=== PATIENT | male | born 1965 | race Caucasian/White ===

== ENCOUNTER 2023-02-13 10:10 | Outpatient (REF) | payer OTHER, SELFPAY ==
[2023-02-13 10:47] LABS: Color Urine Yellow; Glucose Urine UA Negative (Negative); Leukocyte Esterase Urine Negative (Negative); Nitrite Urine Negative (Negative); PH 6.5 (5.0-9.0); Urine Blood Negative (Negative); Urine Ketones Negative (Negative); Urine Protein Trace mg/dL (Neg-Trace)
[2023-02-13 10:50] LABS: Appearance Urine Clear
[2023-02-13 11:29] LABS: Alanine Aminotransferase 40 U/L (0-40); Alkaline Phosphatase 76 U/L (39-117); Anion Gap 11 (12-20); Aspartate Amino Transferase 26 U/L (5-37); Bilirubin Total 1.2 mg/dL (0.0-1.0); Blood Urea Nitrogen 16 mg/dL (9-16); Calcium 9.1 mg/dL (8.4-10.2); Carbon Dioxide 27 mmol/L (22-29); Chloride 106 mmol/L (96-108); Cholesterol 218 mg/dL; Estimated Glomerular Filt Rate > 60; Glucose Fasting 125 mg/dL (60-99); HDL Cholesterol 65 mg/dL; LDL Cholesterol Calculated 136 mg/dl; Potassium 4.2 mmol/L (3.3-5.1); Sodium 140 mmol/L (135-145); Total Protein 6.2 g/dL (6.5-8.0); Triglycerides 85 mg/dL
[2023-02-13 11:34] LABS: Creatinine Urine 159.86 mg/dL; Microalbum/Creatinine Ratio Ur 8.7 ug/mg cr
[2023-02-13 11:51] LABS: Prostate Specific Antigen Scr 0.54 ng/mL (<0.05-4.0); TSH reflex Free T4 1.54 uIU/mL (0.32-4.0)
== END 2023-02-13 10:11 | disposition home or self-care (01) ==
LOC: HO.10HDL 10:10
PROVIDERS: Visit Provider Family Medicine
DX: Z00.00 Encounter for general adult medical examination without abnormal findings (principal); Z12.5 Encounter for screening for malignant neoplasm of prostate; I10 Essential (primary) hypertension
CPT/HCPCS: 36415; 80053; 80061; 81003; 82043; 84153; 84443

== ENCOUNTER → 2023-04-03 11:23 | Outpatient (BNVA) | payer OTHER, SELFPAY | PROVIDERS: PCP Family Medicine; Referring Provider Family Medicine; Visit Provider Surgery | DX: Z01.818 Encounter for other preprocedural examination (principal) | CPT/HCPCS: 99202 ==

== ENCOUNTER 2024-02-21 07:44 | Outpatient (REF) | payer OTHER, SELFPAY ==
[2024-02-21 08:43] LABS: Appearance Urine Clear; Color Urine Yellow; Glucose Urine UA Negative (Negative); Leukocyte Esterase Urine Negative (Negative); Nitrite Urine Negative (Negative); Urine Blood Negative (Negative); Urine Ketones Negative (Negative); Urine Protein Negative (Neg-Trace)
[2024-02-21 09:14] LABS: Creatinine Urine 121.53 mg/dL
[2024-02-21 09:16] LABS: Alanine Aminotransferase 50 U/L (0-40); Alkaline Phosphatase 70 U/L (39-117); Anion Gap 15 (12-20); Aspartate Amino Transferase 31 U/L (5-37); Blood Urea Nitrogen 16 mg/dL (9-16); Calcium 8.9 mg/dL (8.4-10.2); Carbon Dioxide 28 mmol/L (22-29); Chloride 104 mmol/L (96-108); Cholesterol 195 mg/dL (<200); Estimated Glomerular Filt Rate > 60; Glucose Fasting 114 mg/dL (60-99); HDL Cholesterol 62 mg/dL (>40); LDL Cholesterol Calculated 121 mg/dL (<100); Potassium 3.5 mmol/L (3.3-5.1); Sodium 143 mmol/L (135-145); Total Protein 6.4 g/dL (6.5-8.0); Triglycerides 60 mg/dL (<150)
[2024-02-21 09:25] LABS: Prostate Specific Antigen Scr 0.51 ng/mL (<0.05-4.0)
== END 2024-02-21 07:45 | disposition home or self-care (01) ==
LOC: HO.LAB 07:44
PROVIDERS: PCP Family Medicine; Visit Provider Family Medicine
DX: Z00.00 Encounter for general adult medical examination without abnormal findings (principal); I10 Essential (primary) hypertension; Z12.5 Encounter for screening for malignant neoplasm of prostate
CPT/HCPCS: 36415; 80053; 80061; 81003; 82043; 82570; 84153

== ENCOUNTER 2024-03-02 10:55 | Outpatient (AMB) | payer OTHER, SELFPAY ==
[2024-03-02 11:10] VITALS: BP 130/82; PULSE 86; O2SAT 96; BMI 31.1
--- NOTE | 2024-03-02 11:10 | A.OFFPC_ITS ---
Vital Signs 03/02/24 11:10 Height 5 ft 11 in Weight 223 lb BMI 31.1 BP 130/82 Blood Pressure Location Lt brachial Position Sitting Pulse 86 Pulse Source Pulse Oximeter Pulse Oximetry (%) 96 Oxygen Delivery Method Room Air Intake Visit Reasons: CPE with f/u labs and health maint. Intake Note: Patient is here for physical with follow up on labs and health maintenance. Allergies No Known Allergies Allergy (Verified 03/02/24 11:11) Tobacco use date assessed: 03/02/24 Dental Screening Dental Screen Date: 03/02/24 Did you have a dental visit in the last 12 months?: Yes Did you have a dental problem in the last 6 months where you did not have access to dental care?: No Was dental information given to patient?: Patient has dentist HPI CPE with f/u labs and health maint. HPI Details 59 y/o male presents for an extended exa m with f/u labs and health m aintenance. Labs were drawn 02/21/24. Reviewed labs with pt. Elevated fasting glucose of 114. Elevated ALT of 50. AST 31. Triglycerides 60. TC 195. LDL 121. HDL 62. Last A1c 03/01/23 5.2%. Blood pressure today 130/82. PFSH Social History Housing: House Patient Tobacco Use Status: Never used Tobacco e-Cigarette/Vaping Use: Never Used service: No Current occupational status: unemployed Current occupational exposures/hazards: No Cognitive needs: No Hearing needs: No Vision needs: No Questionnaire Thrive Questionnaire Date Thrive assessed: 12/20/22 SUYAPA-7 AMB Questionnaire SUYAPA-7 Date SUYAPA - 7 assessed: 12/20/22 Source: Developed by Drs. Nikos Mukherjee, Cyndie King, Jeremy Pederson and colleagues, with an educational carolyn from [employer]. Review of Systems Const Denies chills, Denies fatigue, Denies fever(s), Denies headache(s) and Denies weakness Eyes Denies change in vision ENT Denies dizziness, Denies headache(s), Denies hearing loss, Denies nasal congestion, Denies sinus pain, Denies sinus pressure and Denies sore throat Card Denies chest pain, Denies lightheadedness, Denies dyspnea and Denies other (palpitations) Resp Denies cough, Denies dyspnea and Denies wheezing GI Denies abdominal pain, Denies melena, Denies hematochezia, Denies change in bowel habits, Denies dyspepsia and Denies nausea Denies hematuria and Denies dysuria Musc Denies abnormal gait, Denies myalgias, Denies arthralgias, Denies numbness and Denies tingling Skin/Breast Denies rash, Denies unusual bruising and Denies wounds Neuro Denies abnormal gait, Denies dizziness, Denies headache(s), Denies memory loss, Denies numbness, Denies Sensory deficit (Neuro), Denies tingling and Denies weakness Psych Denies anxiety, Denies depression and Denies memory loss Endo Denies cold intolerance, Denies fatigue, Denies heat intolerance, Denies polydipsia and Denies polyuria Clint/Lymph Denies easy bleeding and Denies easy bruising Aller/Immun Denies wheezing Physical exam (Primary Care) Vital Signs: Last Vital Signs Pulse 86 03/02/24 11:10 BP 130/82 03/02/24 11:10 Pulse Ox 96 03/02/24 11:10 Oxygen Delivery Method Room Air 03/02/24 11:10 BMI result Body Mass Index 31.1 Tobacco/Smoking Status: Tobacco use Status Tobacco use date assessed 03/02/24 03/02/24 11:16 Patient Tobacco Use Status Never used Tobacco 03/02/24 11:10 e-Cigarette/Vaping Use Never Used 03/02/24 11:10 Thrive Assessment: Date of Thrive Assessment Date Thrive assessed 12/20/22 03/02/24 11:10 Const General: no acute distress, well developed, alert and awake Nutritional Appearance: well nourished Orientation/consciousness: patient oriented x3 HENMT Head: Yes normocephalic and Yes atraumatic Ears: hearing grossly normal bilaterally and TM's normal bilaterally General nose exam: Normal external nose present and Normal nares present Mouth: Normal oral and palatal mucosa present and moist mucous membranes Teeth and gingiva: dentition normal Throat: Yes posterior oropharynx normal Eyes General: appearance normal, both eyes and all related structures Pupils: Equal, round and reactive pupils present and Pupil accommodation reflex normal EOM: EOMs intact bilaterally Neck Neck: Yes normal visual inspection, Yes no lymphadenopathy and Yes trachea midline Thyroid: Thyroid normal Carotids: no bruits Lymphatic: no lymphadenopathy noted Chest Chest palpation & inspection: normal inspection of the chest Resp Effort & Inspection: normal respiratory effort Auscultation: clear to auscultation bilaterally Cardio Rate: regular rate Rhythm: regular rhythm Heart sounds: S1 normal heart sound present, S2 normal heart sound present, no gallops, no murmurs and no rubs Bruits: no abdominal aortic bruits and no carotid bruits GI Palpation (GI): No Abdominal aortic bruit present, Soft to palpation, nontender, No hepatosplenomegaly present and No Rebound tenderness present Auscultation: normal bowel sounds General: Yes no CVA tenderness Back/Spine/Pelvis Back: no CVA tenderness Cervical Spine: cervical ROM normal and No Cervical spine tenderness Thoracic/Lumbar Spine: thoraco-lumbar ROM normal, No pain with thoraco-lumbar ROM, No thoracic spinal tenderness and No lumbar spinal tenderness Skin Lesions: no lesions Rashes: no rashes Trauma: no lacerations or abrasions Wounds: no wounds Nails: normal Neuro General: patient oriented x3 Cranial nerves: Yes Equal, round and reactive pupils present Cognition (Neuro): normal cognition Gait exam (Neuro): Normal gait present Motor exam (neuro): 5/5 motor strength present throughout Sensory Exam: No Sensory deficit (Neuro) Deep tendon reflexes (DTR's): Right patellar reflex intensity grade: 2+ and Left patellar reflex intensity grade: 2+ Extrem General: Yes normal to inspection and No edema Psych Appearance: grossly normal Affect: normal affect Attitude: cooperative Thought process: Normal thought process present Assessment and Plan Assessment & Plan (1) Hypercholesterolemia: Code(s): E78.00 - Pure hypercholesterolemia, unspecified Plan: LDL?cholesterol?is?improved. HDL?ratios?are?good Encouraged?improved?diet,?low?in?saturated?fats?and?cholesterol Encouraged?more?exercise (2) Elevated fasting glucose: Code(s): R73.01 - Impaired fasting glucose Plan: Encouraged?diet?lower?in?sugars?and?starches Encouraged?weight?loss?and?exercise (3) Elevated liver enzymes: Code(s): R74.8 - Abnormal levels of other serum enzymes Plan: Encouraged?weight?loss Had?liver?ultrasound?for?5?years?ago. Repeating?the Will?follow-up?on?ultrasound?and?repeat?liver?enzymes?at?next?visit (4) [place]: Code(s): L84 - Corns and callosities Plan: [place]?on?bottom?of?right?foot Offered?to?refer?to?Podiatry?but?patient?wants?to?try?at?home?cryo?remedy He?can?let?me?know?if?he?would?like?a?refer (5) Screening for colon cancer: Code(s): Z12.11 - Encounter for screening for malignant neoplasm of colon Plan: Had?referred?him?to??Dmitri?but?his?insurance?changed He?would?like?a?referral?to??Bro-refer (6) Screening for prostate cancer: Code(s): Z12.5 - Encounter for screening for malignant neoplasm of prostate Plan: PSA?was?within?normal?limits Will?continue?annual?screen (7) Adult general medical exam: Code(s): Z00.00 - Encounter for general adult medical examination without abnormal findings Plan: 59-year-old?male?presents?for?extended?exam Encouraged?healthy?diet?with?active?lifestyle?and?plenty?of?exercise Orders: Orders US abdomen gerard w elastography Today R74.8 - Abnormal levels of other serum enzymes Comprehensive [place]. Panel Fast Today R74.8 - Abnormal levels of other serum enzymes, Z00.00 - Encounter for general adult medical examination without abnormal findings Referrals Gastroenterology Referral Z12.11 - Encounter for screening for malignant neoplasm of colon Coding Level of Care Code Est Pt Level 4 (78295) Diagnoses Hypercholesterolemia E78.00 Elevated fasting glucose R73.01 Elevated liver enzymes R74.8 [place] L84 Screening for colon cancer Z12.11 Screening for prostate cancer Z12.5 Adult general medical exam Z00.00
== END 2024-03-02 11:43 | disposition home or self-care (01) ==
PROVIDERS: Visit Provider Family Medicine
DX: E78.00 Pure hypercholesterolemia, unspecified (principal); R73.01 Impaired fasting glucose; R74.8 Abnormal levels of other serum enzymes; L84 Corns and callosities; Z12.11 Encounter for screening for malignant neoplasm of colon; Z12.5 Encounter for screening for malignant neoplasm of prostate; Z00.00 Encounter for general adult medical examination without abnormal findings
CPT/HCPCS: 99214

== ENCOUNTER 2024-04-08 07:49 | Outpatient (REF) | payer OTHER, SELFPAY ==
--- NOTE | ~2024-04-08 | US_ITS ---
EXAMINATION: US ABDOMEN LIMITED WITH LIVER ELASTOGRAPHY CLINICAL INFORMATION: Abnormal levels of other serum enzymes. COMPARISON: Abdominal ultrasound dated 09/17/2018. TECHNIQUE: Real-time imaging of the abdominal viscera. Noninvasive ultrasound liver fibrosis assessment is performed using Regina ElastPQ point quantification shear wave elastography (2D-SWE) with a C5-2 MHz transducer. Multiple elastography samples are obtained. FINDINGS: PANCREAS: Limited. The visualized pancreatic head and body are normal in appearance. The remainder of the pancreas is obscured from visualization by the overlying bowel gas. LIVER: Normal. The liver demonstrates normal size, contour and echogenicity. No focal lesion or intrahepatic biliary duct dilatation. The right lobe measures 15.9 cm in length. The left lobe measures 10.7 cm in length. Portal flow is towards the liver (hepatopetal). Shear wave liver elastography median stiffness is 1.42 m/s (reference: normal median stiffness is 1.3 m/s or less). IQR/median stiffness to assess sampling precision is 0.06 (reference: good quality data set is IQR/median stiffness of 0.15 or less). GALLBLADDER: Normal. The gallbladder is physiologically distended without evidence of stones, sludge, polyps, wall thickening or pericholecystic fluid. COMMON BILE DUCT: Normal in caliber measuring 0.3 cm in diameter. RIGHT KIDNEY: At the lower pole, a 4 mm nonobstructing calculus is seen, with twinkle artifact. No hydronephrosis. No renal calculi or focal parenchymal lesions. The kidney measures 11.6 cm in maximum dimension. FREE FLUID: None. US/US abdomen gerard w elastography IMPRESSION: 1. A 4 mm nonobstructing right renal calculus is seen. 2. Liver elastography: In the absence of other known clinical signs, measurements rule out compensated advanced chronic liver disease. If there are known clinical signs, further testing may be needed for confirmation. 3. Technically limited ultrasound examination of the pancreatic tail. REFERENCE: Society of Radiologists in Ultrasound Liver Stiffness Thresholds (2020): LIVER STIFFNESS THRESHOLDS: *Liver Stiffness equal or less than 1.3 m/s: High probability of being normal. *Liver Stiffness less than 1.7 m/s: In the absence of other known clinical signs, rules out compensated advanced chronic liver disease. *Liver Stiffness 1.7-2.1 m/s: Suggestive of compensated advanced chronic liver disease but need further test for confirmation. *Liver Stiffness over 2.1 m/s: Rules in compensated advanced chronic liver disease. *Liver Stiffness over 2.4 m/s: Suggestive of clinically significant portal hypertension. QUALITY OF DATA SET: *IQR/Median value equal or less than 0.15 implies a quality data set. *IQR/Median value over 0.15 implies a poor quality data set. SIGNIFICANT CHANGE FROM PRIOR EXAM: Significant change if liver stiffness measurement is 10% or greater from prior exam. OTHER CONSIDERATIONS: The stage of liver fibrosis may be overestimated in the setting of acute hepatitis, liver inflammation, elevated liver function tests, hepatic vascular congestion, obstructive cholestasis, non-fasting state, and infiltrative diseases such as amyloidosis and lymphoma. In some patients with NAFLD, the liver stiffness thresholds for compensated advanced chronic liver disease may be lower. In causes other than viral hepatitis and NAFLD, liver stiffness thresholds are not well established.
== END 2024-04-08 07:50 | disposition home or self-care (01) ==
LOC: HO.US 07:49
PROVIDERS: PCP Family Medicine; Visit Provider Family Medicine
DX: R74.8 Abnormal levels of other serum enzymes (principal)
CPT/HCPCS: 76705; 76981

== ENCOUNTER 2024-05-25 09:17 | Outpatient (REF) | payer OTHER, SELFPAY ==
[2024-05-25 11:40] LABS: Alanine Aminotransferase 46 U/L (0-40); Albumin Level 4.1 g/dL (3.5-5.0); Alkaline Phosphatase 67 U/L (39-117); Anion Gap 12 (12-20); Aspartate Amino Transferase 31 U/L (5-37); Bilirubin Total 1.2 mg/dL (0.0-1.0); Blood Urea Nitrogen 14 mg/dL (9-16); Calcium 9.3 mg/dL (8.4-10.2); Carbon Dioxide 26 mmol/L (22-29); Chloride 106 mmol/L (96-108); Estimated Glomerular Filt Rate > 60; Glucose Fasting 118 mg/dL (60-99); Potassium 3.5 mmol/L (3.3-5.1); Sodium 140 mmol/L (135-145); Total Protein 6.5 g/dL (6.5-8.0)
== END 2024-05-25 09:18 | disposition home or self-care (01) ==
LOC: HO.10HDL 09:17
PROVIDERS: Visit Provider Family Medicine
DX: Z00.00 Encounter for general adult medical examination without abnormal findings (principal); R74.8 Abnormal levels of other serum enzymes
CPT/HCPCS: 36415; 80053

== ENCOUNTER 2024-06-02 10:56 | Outpatient (AMB) | payer OTHER, SELFPAY ==
--- NOTE | 2024-06-02 11:47 | MHC.PC.OV ---
Vital Signs 06/02/24 11:48 Height 5 ft 11 in Weight 214 lb 6 oz BMI 29.9 BP 126/80 Blood Pressure Location Rt brachial Position Sitting Respiration 15 Pulse 78 Pulse Source Pulse Oximeter Temp 98 F Temp Source Temporal Artery Scan Pulse Oximetry (%) 97 Oxygen Delivery Method Room Air Intake Visit Reasons: f/u elevated liver enzymes Skip Locator Required: No Accompanied by: Self / Same As Patient Allergies No Known Allergies Allergy (Verified 06/02/24 11:51) Tobacco use date assessed: 03/02/24 Dental Screening Dental Screen Date: 03/02/24 HPI f/u elevated liver enzymes HPI Details 59 y/o male presents to f/u elevated liver enzymes. Labs were drawn 05/25/24. Reviewed labs with pt. Elevated AST of 46. Liver elastography 04/08/24. 4mm nonobstructing R renal calculus was seen. Liver stiffness 1.42 m/s. [facility] Medical History No pertinent past medical history Surgical History No pertinent past surgical history Social History Housing: House Patient Tobacco Use Status: Never used Tobacco e-Cigarette/Vaping Use: Never Used service: No Current occupational status: unemployed Current occupational exposures/hazards: No Cognitive needs: No Hearing needs: No Vision needs: No Questionnaire Thrive Questionnaire Date Thrive assessed: 12/20/22 SUYAPA-7 AMB Questionnaire SUYAPA-7 Date SUYAPA - 7 assessed: 12/20/22 Source: Developed by Drs. Nikos Mukherjee, Cnydie King, Jeremy Pederson and colleagues, with an educational carolyn from [employer]. Physical exam (Primary Care) Vital Signs: Last Vital Signs Temp 98 F 06/02/24 11:48 Pulse 78 06/02/24 11:48 Resp 15 06/02/24 11:48 BP 126/80 06/02/24 11:48 Pulse Ox 97 06/02/24 11:48 Oxygen Delivery Method Room Air 06/02/24 11:48 BMI result Body Mass Index 29.9 Tobacco/Smoking Status: Tobacco use Status Tobacco use date assessed 03/02/24 06/02/24 11:53 Patient Tobacco Use Status Never used Tobacco 06/02/24 11:53 e-Cigarette/Vaping Use Never Used 06/02/24 11:53 Thrive Assessment: Date of Thrive Assessment Date Thrive assessed 12/20/22 06/02/24 11:53 Assessment and Plan Assessment & Plan (1) Elevated liver enzymes: Code(s): R74.8 - Abnormal levels of other serum enzymes Plan: Mild?elevation?in?liver?enzymes.??Most?recently?ALT?has?decreased?slightly Imaging?did?not?show?any?masses?or?lesions.??Elastography?ruled?out?any compensated?advanced?chronic?liver?disease He?has?lost?some?weight?and?I?encouraged?him?to?continue?this. Encouraged?good?hydration (2) Kidney stone: Code(s): N20.0 - Calculus of kidney Plan: Incidental?right?kidney?stone?was?seen Increase?hydration Orders: Orders Comprehensive [place]. Panel Fast Today R74.8 - Abnormal levels of other serum enzymes, Z00.00 - Encounter for general adult medical examination without abnormal findings Hemoglobin A1c Today R73.01 - Impaired fasting glucose UA and rflx microscopic Today N20.0 - Calculus of kidney, Z00.00 - Encounter for general adult medical examination without abnormal findings Coding Level of Care Code Est Pt Level 3 (13529) Diagnoses Elevated liver enzymes R74.8 Kidney stone N20.0
[2024-06-02 11:48] VITALS: BP 126/80; PULSE 78; RESP 15; TEMP 36.6; O2SAT 97; BMI 29.9
== END 2024-06-02 12:22 | disposition home or self-care (01) ==
PROVIDERS: PCP Family Medicine; Visit Provider Family Medicine
DX: R74.8 Abnormal levels of other serum enzymes (principal); N20.0 Calculus of kidney
CPT/HCPCS: 99213

== ENCOUNTER 2024-10-05 13:10 | Day surgery (SDC) | payer OTHER, SELFPAY ==
[2024-10-01 14:13] VITALS: BMI 30.7
--- NOTE | 2024-10-02 08:52 | HO.ANESPROP2 ---
Documented by User: Ina Hadley NP 10/02/24 08:55 HPI - Anesthesia Eval Consult details Narrative: 59yo M for Colonoscopy PMFSH Active Problems Active Problems: All Active Problems Kidney stone (Acute) [place] (Acute) Elevated liver enzymes (Acute) Screening for prostate cancer (Acute) Screening for colon cancer (Acute) Adult general medical exam (Acute) Hypercholesterolemia (Acute) Elevated fasting glucose (Acute) Plantar fasciitis, left (Acute) Laboratory examination ordered as part of a routine general medical examination (Acute) Past Medical History Medical History Renal calculi Surgical History Surgical History Hx of excision of mass History of repair of anterior cruciate ligament of right knee Hx of shoulder surgery Social History Social History (Reviewed 06/02/24 @ 11:53 by Francoise Ackerman [facility]) Housing: House Patient Tobacco Use Status: Never used Tobacco e-Cigarette/Vaping Use: Never Used Have you been hit, kicked, punched, or otherwise hurt by someone within the past year? If so, by whom?: No Are you DNR?: No Advance Directives: No Advance Directives Information Provided: Yes Recently lost weight without trying: No Nutrition Risks: No Nutritional Risk Poor oral hygiene: No service: No Current occupational status: unemployed Current occupational exposures/hazards: No Cognitive needs: No Hearing needs: No Vision needs: No Meds Allergies Allergy/AdvReac Type Severity Reaction Status Date / Time No Known Allergies Allergy Verified 06/02/24 11:51 Exam Height,Weight and Vital Signs: Height 5 ft 10 in Weight 97.069 kg Assessment and Plan Assessment Anesthesia Assessment: Chart Reviewed Documented by User: Kelechi Abdul MD 10/05/24 14:53 PMFSH Past Medical History Medical History Renal calculi Family History Family history of problems with anesthesia: No Surgical History Surgical History Hx of excision of mass History of repair of anterior cruciate ligament of right knee Hx of shoulder surgery History of Problems with Anesthesia: No Social History Social History Housing: House Patient Tobacco Use Status: Never used Tobacco e-Cigarette/Vaping Use: Never Used Have you been hit, kicked, punched, or otherwise hurt by someone within the past year? If so, by whom?: No Are you DNR?: No Advance Directives: No Advance Directives Information Provided: Yes Recently lost weight without trying: No Nutrition Risks: No Nutritional Risk Poor oral hygiene: No service: No Current occupational status: unemployed Current occupational exposures/hazards: No Cognitive needs: No Hearing needs: No Vision needs: No Meds Allergies Allergy/AdvReac Type Severity Reaction Status Date / Time No Known Allergies Allergy Verified 06/02/24 11:51 Exam Airway Mallampati Class: II TM Dist: <=3cm Neck ROM: Full Loose/Missing/Broken Teeth: No Heart: ok Lungs: ok Assessment and Plan Assessment Anesthesia Assessment: Anesthesia Plan Discussed Final Anesthetic Review Family History of Problems with Anesthesia: No History of Problems with Anesthesia: No NPO: Yes ASA Class: II Final Preanesthetic Review: No Changes in Pt Med Stat, Meds/Allgs Chart Reviewed, Consent Obtained/Reviewed and Anes Risks/Benef Reviewed Patient Risk: Low Procedure Risk: Low Anesthetic Plan Anesthetic Plan: MAC: and Agree w/ Assess. and Plan Disposition: Standard PACU
[2024-10-05 13:56] VITALS: BP 139/87; PULSE 80; RESP 18; TEMP 36.4; O2SAT 96
[2024-10-05 15:35] VITALS: BP 101/60; PULSE 66; RESP 18; TEMP 36.1; O2SAT 94
--- NOTE | 2024-10-05 15:38 | PM.OP ---
Brief Operative Note Date of Service: 10/05/24 Pre-op diagnosis: Screening Post-op diagnosis: other (Colon polyp) Procedure: Colonoscopy to the cecum and TI with cold snare polypectomy Surgeon: Nikos Crabtree MD Anesthesia: MAC Was an Aerosol Supervisor used for this Procedure?: No Estimated blood loss (mL): 2.0 Pathology: other (A. Transverse colon polyp) Condition: stable Disposition: PACU
[2024-10-05 15:50] VITALS: BP 121/82; PULSE 77; RESP 20; TEMP 36.4; O2SAT 97
--- NOTE | 2024-10-05 15:52 | OP_ITS ---
DATE OF SERVICE: 10/05/2024 SURGEON: Nikos Crabtree MD INDICATIONS: The patient presents for evaluation of colorectal cancer screening. Full consent has been obtained from him for this, including risks of bleeding and perforation. PREOPERATIVE DIAGNOSIS: Colorectal cancer screening. POSTOPERATIVE DIAGNOSIS: PROCEDURE PERFORMED: Colonoscopy to cecum and terminal ileum with cold snare polypectomy x1. ESTIMATED BLOOD LOSS: COMPLICATIONS: ANESTHESIA: Monitored anesthesia care. ASSISTANTS: SPECIMENS: POSTOPERATIVE DIAGNOSES: Colorectal cancer screening, small colon polyp, mild sigmoid diverticulosis, and small internal hemorrhoids. DESCRIPTION OF PROCEDURE: The patient was placed in the left lateral decubitus position. The digital rectal exam revealed no abnormalities. The Olympus video pediatric colonoscope was then entered into the rectum and advanced easily to the cecum. Once in the cecum, I did identify normal-appearing cecal pouch with appendiceal orifice and a normal-appearing ileocecal valve. The terminal ileum was cannulated and appeared normal. Scope was withdrawn back in the colon. The entire cecum and ileocecal valve appeared normal. The scope was slowly withdrawn assessing all mucosal surfaces carefully. Preparation was excellent. In the transverse colon, was a flat, approximately 5 or 6 mm polyp, which was removed by cold snare polypectomy and recovered by suction. The polypectomy site appeared clean, without any sign of residual polyp nor significant bleeding. I did not visualize any other polyps, colitis, nor angiodysplasias. There was a mild amount of sigmoid diverticulosis. In the rectum, scope was retroflexed, visualizing small internal hemorrhoids, but no other pathology. The rectal mucosa appeared normal. The scope was straightened and withdrawn from the patient. He tolerated the procedure well and was returned to the recovery area in stable condition. IMPRESSION: 1. Small colon polyp. 2. Mild diverticulosis. 3. Small internal hemorrhoids. PLAN: The results of the pathology will be checked. If the polyp is a tubular adenoma, I would recommend a followup colonoscopy in 5 years. If it is only hyperplastic, then I would recommend a followup colonoscopy in 10 years. He was advised not to use any aspirin and NSAIDs for 1 week. MD NAT Cooper/JACQUELYN / [phone]
== END 2024-10-05 16:03 | disposition home or self-care (01) ==
PROVIDERS: PCP Family Medicine; Visit Provider Internal Medicine
PROC: 0DJD8ZZ Inspection of Lower Intestinal Tract, Via Natural or Artificial Opening Endoscopic (ICD-10-PCS; CPT 45378; principal; 2024-10-05 13:30)
DX: Z12.11 Encounter for screening for malignant neoplasm of colon (principal); Z83.719 Family history of colon polyps, unspecified; D12.3 Benign neoplasm of transverse colon; K57.30 Diverticulosis of large intestine without perforation or abscess without bleeding; K64.8 Other hemorrhoids; Z87.442 Personal history of urinary calculi; Z98.890 Other specified postprocedural states
CPT/HCPCS: 45385; 88305; J2003; J2704

== ENCOUNTER 2024-11-03 13:46 | Outpatient (AMB) | payer OTHER, SELFPAY ==
--- OUTSIDE RECORDS SUMMARY | 2024-11-03 13:48 | XMS_ITS ---
Author Organization [facility] Address [address] [place] [address] Care Team Providers Care Hand Molder Name Role Phone Harvey Louis Primary Care Provider Unavailab Nikos Luong Unavailable [phone] REASON FOR VISIT screening PROBLEMS Problem Type ICD Code Onset Dates Problem Status W/U Status Risk SNOMED Code Notes Problem Diverticulosis of large intestine without perforation or abscess without bleeding (K57.30) Active confirmed Diverticul ar disease of colon (833306236) Encounters Encounter Location Date Provider Diagnosis [facility] [place] [address] [place] [phone] 10/05/2024 Nikos Crabtree Colon cancer scree sean Z12.11 ; Colon polyps K63.5 ; Diverticulosis of large intestine without perforation or abscess without bleeding K57.30 and Other hemorrhoids K64.8 ASSESSMENTS Encounter Date Diagnosis Assessment Notes Treatment Notes Treatment Clinical Notes 10/05/2024 Colon cancer screening (ICD-10 - Z12.11) 10/05/2024 Colon polyps (ICD-10 - K63.5) 10/05/2024 Diverticulosis of large intestine without perforation or abscess without bleeding (ICD-10 - K57.30) 10/05/2024 Other hemorrhoids (ICD-10 - K64.8) PLAN OF TREATMENT No Information
--- OUTSIDE RECORDS SUMMARY | 2024-11-03 13:49 | XMS_ITS ---
Author Organization [facility] Address [address] [place] [address] Care Team Providers Care Caustic Strength Inspector Name Role Phone Harvey Louis Primary Care Provider Unavailab Nikos Luong Unavailable [phone] ALLERGIES No Known Allergies REASON FOR VISIT Patient presents today for a colon screening PROBLEMS Problem Type ICD Code Onset Dates Problem Status W/U Status Risk SNOMED Code Notes Problem Colon cancer screening (Z12.11) Active confirmed Colon cancer screening (353071065) Problem Encounter for other preprocedural examination (Z01.818) Active confirmed Pre-procedure evaluation check (963286081) VITAL SIGNS BMI 30.70 kg/m2 07/21/2024 Blood pressure systolic 00 mm Hg 07/21/20 24 Blood pressure diastolic 00 mm Hg 024 Height 70 in 07/21/2024 Weight 214 lbs 07/21/2024 Encounters Encounter Location Date Provider Diagnosis [facility] [address] [place] [phone] 07/21/2024 Nikos Crabtree Colon cancer screeni ng Z12.11 and Encounter for other preprocedural examination Z01.818 ASSESSMENTS Encounter Date Diagnosis Assessment Notes Treatment Notes Treatment Clinical Notes 07/21/2024 Colon cancer screening (ICD-10 - Z12.11) 07/21/2024 Encounter for other preprocedural examination (ICD-10 - Z01.818) PLAN OF TREATMENT Future Test Test Name Order Date COLONOSCOPY 07/21/2024 Next Appt Details Follow Up: prn, Reason: Progress Notes * Examination Category Sub-Category Detail Notes General Examination GENERAL APPEARANCE: pleasant , well nourished, well developed, in no acute distress HEAD: EYES: sclera non-icteric EARS: NOSE: THROAT: NECK/THYROID: no cervical lymphade nopathy, neck supple HEART: S1, S2 normal CHEST: LUNGS: clear to auscultatio n bilaterally ABDOMEN: normal bowel sounds, no guarding or rigidity, no guarding or rigidity, no masses palpable, soft, nontender, nondistended NEUROLOGIC: alert and oriented SKIN: nonjaundiced, no spi josé angiomata EXTREMITIES: no edema PERIPHERAL PULSES: BACK: BREASTS: MUSCULOSKELETAL: MALE GENITOURINARY: LYMPH NODES: RECTAL EXAM: FEMALE GENITOURINARY: ORAL CAVITY: mucosa moist
--- OUTSIDE RECORDS SUMMARY | 2024-11-03 13:49 | XMS_ITS | Patient Health Record ---
Author Organization [facility] Address [address] [place] [address] Care Team Providers Care Epic Kaleidoscope Analyst Name Role Phone Heriberto, Harvey Primary Care Provider Unavailab Nikos Luong Unavailable [phone] ALLERGIES No Known Allergies RESULTS Component Value Reference Range Notes Pathology (Not yet reviewed by provider) Interpretation: Performing Lab:[facility], [address] [place] [phone] Notes/Report: REASON FOR REFERRAL No Information SOCIAL HISTORY Sex Assigned At : Social History Observation Description Sex Assigned At Unknown PROBLEMS Problem Type ICD Code Onset Dates Problem Status W/U Status Risk SNOMED Code Notes Problem Colon cancer screening (Z12.11) Active confirmed Colon can cer screening (347962479) Problem Encounter for other preprocedural examination (Z01.818) Active confirmed Pre-procedure evaluation check (267152335) Problem Diverticulosis of large intestine without perforation or abscess without bleeding (K57.30) Active confirmed Diverticul ar disease of colon (959438117) VITAL SIGNS Blood pressure diastolic 00 mm Hg 07/21/2024 Height 70 in 07/21/2024 Blood pressure systolic 00 mm Hg 07/21/2024 Weight 214 lbs 07/21/2024 BMI 30.70 kg/m2 07/21/2024 Encounters Encounter Location Date Provider Diagnosis [facility] [place] [address] [place] [id number] 10/05/2024 Nikos Crabtree Colon cancer screeni ng Z12.11 ; Colon polyps K63.5 ; Diverticulosis of large intestine without perforation or abscess without bleeding K57.30 and Other hemorrhoids K64.8 [facility] [address] [place] [phone] 07/21/2024 Nikos Crabtree Colon cancer screeni ng Z12.11 and Encounter for other preprocedural examination Z01.818 ASSESSMENTS Encounter Date Diagnosis Assessment Notes Treatment Notes Treatment Clinical Notes 10/05/2024 Colon cancer screening (ICD-10 - Z12.11) 10/05/2024 Colon polyps (ICD-10 - K63.5) 07/21/2024 Colon cancer screening (ICD-10 - Z12.11) 07/21/2024 Encounter for other preprocedural examination (ICD-10 - Z01.818) 10/05/2024 Diverticulosis of large intestine without perforation or abscess without bleeding (ICD-10 - K57.30) 10/05/2024 Other hemorrhoids (ICD-10 - K64.8) PLAN OF TREATMENT Pending Test Test Name Order Date Pathology 10/05/2024 Future Test Test Name Order Date COLONOSCOPY 08/19/2014 COLONOSCOPY 07/21/2024 Insurance Providers Payer Name Payer Address Payer Phone Subscriber Number Group Number Insured Name Patient Relationship to Insured Coverage Start Date Coverage End Date [facility] [address] [address] [place], [place] [id number] NITISH JOHNSON Self - patient is the insured MEDICAL (GENERAL) HISTORY Medical History History ICD Code Denies AK,DM,CVA,Lung disease,renal dise ase Kidney stone Surgical History Surgery Date(Month/Year) Shoulder surgery-right Right knee surgery-ACL Ganglion on the left
--- NOTE | 2024-11-03 13:51 | A.OFFPC_ITS ---
Vital Signs 11/03/24 13:54 Height 5 ft 11 in Weight 224 lb 2 oz BMI 31.3 BP 142/88 H Blood Pressure Location Rt brachial Position Sitting Respiration 16 Pulse 78 Pulse Source Pulse Oximeter Temp 98.4 F Temp Source Temporal Artery Scan Pulse Oximetry (%) 97 Oxygen Delivery Method Room Air Intake Visit Reasons: pressure on right side of head/stiff neck Intake Note: patient here c/o he was bleeding thru his right nostril and pressure on right side of head and stiff neck since sep 23 Director Loss Prevention Required: No Allergies No Known Allergies Allergy (Verified 11/03/24 14:11) Medication List - Last Reconciled 11/03/24 by Lisa Trejo CNP No Known Home Meds Tobacco use date assessed: 11/03/24 Dental Screening Dental Screen Date: 11/03/24 Did you have a dental visit in the last 12 months?: Yes Did you have a dental problem in the last 6 months where you did not have access to dental care?: No Was dental information given to patient?: Patient has dentist HPI HPI Comments History of Present Illness Details The patient is a 59-year-old male presenting with a history of epist axis and right-sided facial pressure. On September 23, the patient experienced a significant episode of epistaxis, with bright red blood gushing from the right nostril. He noted the presence of approximately 5 inches by 5 inches of blood staining on his bed sheet, which he described as unusual since he typically does not experience nosebleeds. Following this event, he developed a persistent sensation of pressure on the right side of his head and right ear, which commenced shortly after the nosebleed and has persisted for about a month without any exacerbation. The pressure is constant, not associated with any throbbing, and has been relieved intermittently upon taking ibuprofen. The patient is uncertain of the cause of these symptoms and has not experienced them previously. Previous medical history does not include frequent nosebleeds, and there are no notable neurological symptoms. The patient denies any associated trauma, visual disturbances, tingling, or numbness. [facility] Medical History (Updated 11/03/24 @ 14:37 by Lisa Trejo CNP) Renal calculi Surgical History Hx of excision of mass History of repair of anterior cruciate ligament of right knee Hx of shoulder surgery Social History Housing: House Patient Tobacco Use Status: Never used Tobacco e-Cigarette/Vaping Use: Never Used service: No Current occupational status: unemployed Current occupational exposures/hazards: No Cognitive needs: No Hearing needs: No Vision needs: No Questionnaire Thrive Questionnaire Date Thrive assessed: 12/20/22 SUYAPA-7 AMB Questionnaire SUYAPA-7 Date SUYAPA - 7 assessed: 12/20/22 Source: Developed by Drs. Nikos Mukherjee, Cyndie King, Jeremy Pederson and colleagues, with an educational carolyn from [employer]. Review of Systems Const Details: Const Denies chills, Denies fatigue, Denies fever(s), Denies headache(s) and Denies weakness ENT Reports as per HPI Card Denies chest pain, Denies lightheadedness, Denies dyspnea and Denies other (Palpitations) Resp Denies cough, Denies dyspnea, Denies wheezing and Denies other ( shortness of br eath) GI Denies abdominal pain, Denies melena, Denies hematochezia, Denies change in bowel habits, Denies dyspepsia and Denies nausea Denies hematuria and Denies dysuria Musc Denies abnormal gait, Denies myalgias, Denies arthralgias, Denies numbness and Denies tingling Skin/Breast Denies rash, Denies unusual bruising and Denies wounds Neuro Denies abnormal gait, Denies dizziness, Denies headache(s), Denies memory loss, Denies numbness, Denies Sensory deficit (Neuro), Denies tingling and Denies weakness Psych Denies anxiety, Denies depression, Denies memory loss Endo Denies cold intolerance, Denies fatigue, Denies heat intolerance, Denies polydipsia and Denies polyuria Aller/Immun Denies wheezing Physical exam (Primary Care) Vital Signs: Last Vital Signs Temp 98.4 F 11/03/24 13:54 Pulse 78 11/03/24 13:54 Resp 16 11/03/24 13:54 BP 142/88 H 11/03/24 13:54 Pulse Ox 97 11/03/24 13:54 Oxygen Delivery Method Room Air 11/03/24 13:54 BMI result Body Mass Index 31.3 Tobacco/Smoking Status: Tobacco use Status Tobacco use date assessed 11/03/24 11/03/24 13:57 Patient Tobacco Use Status Never used Tobacco 11/03/24 13:52 e-Cigarette/Vaping Use Never Used 11/03/24 13:52 Thrive Assessment: Date of Thrive Assessment Date Thrive assessed 12/20/22 11/03/24 13:52 Const Other: General: no acute distress and well developed Nutritional Appearance: well nourished Orientation/consciousness: patient oriented x3 HENMT Head is normocephalic Bilateral ear canal and TM are normal Nasal turbinates and oropharynx are pink and moist Sinuses are nontender with palpation No auricular or cervical lymphadenopathy Eyes General: appearance normal, both eyes and all related structures Pupils: Equal, round and reactive pupils present EOM: EOMs intact bilaterally Resp Effort & Inspection: normal respiratory effort Auscultation: clear to auscultation bilaterally Cardio Rate: regular rate Rhythm: regular rhythm Heart sounds: S1 normal heart sound present, S2 normal heart sound present, no gallops, no murmurs and no rubs GI Palpation (GI): No Abdominal aortic bruit present, Soft to palpation, nontender, No hepatosplenomegaly present and No Rebound tenderness present Auscultation: normal bowel sounds General: Yes no CVA tenderness Back/Spine/Pelvis Back: no CVA tenderness Cervical Spine: cervical ROM normal and No Cervical spine tenderness Thoracic/Lumbar Spine: thoraco-lumbar ROM normal, No pain with thoraco-lumbar ROM, No thoracic spinal tenderness and No lumbar spinal tenderness Extrem General: Yes normal to inspection, No edema and No calf tenderness Skin General: warm and dry. Normal skin color. Normal skin turgor Neuro General: patient oriented x3, gait normal and no focal neuro deficit Cranial nerves: Yes Equal, round and reactive pupils present Cognition (Neuro): normal cognition Gait exam (Neuro): Normal gait present Sensory Exam: No Sensory deficit (Neuro) Psych Appearance: grossly normal Affect: normal affect Attitude: cooperative Thought process: Normal thought process present Coding Level of Care Code Est Pt Level 4 (38109) Diagnoses Pressure and pain of right side of face R51.9 Elevated blood pressure reading without diagnosis of hypertension R03.0 Assessment & Plan Assessment & Plan (1) Pressure and pain of right side of face: Code(s): R51.9 - Headache, unspecified Category: Medical Plan: - Refer to ENT for further evaluation of sinus and ENT-related concerns due to right-sided facial pressure and a significant episode of epistaxis. - Monitor blood pressure and continue recording to differentiate symptomatic from primary hypertension. - Advise on follow-up with primary care if symptoms persist or new symptoms develop, particularly severe headache or further bleeding. (2) Elevated blood pressure reading without diagnosis of hypertension: Code(s): R03.0 - Elevated blood-pressure reading, without diagnosis of hypertension Category: Medical Plan: Plan as above. Plan During the visit, I discussed the referral to an ENT specialist with the patient to explore sinus-related and other ENT concerns due to the significant epistaxis event and right-sided facial pressure. We reviewed the risks of delaying further investigation, given the persistent pressure on the head's right side and observed slightly elevated blood pressure. I emphasized monitoring for any progression of symptoms, particularly the development of severe headache, visual disturbances, or recurrent bleeding, warranting more urgent evaluation. Orders: Referrals Ear/Nose/Throat Referral R51.9 - Headache, unspecified Patient Instructions: - Follow up with the ENT specialist as referred for further assessment of sinus and ENT-related issues. - Monitor and record blood pressure regularly. - Monitor for any worsening symptoms, including severe headache or further nasal bleeding, and seek immediate care if such symptoms occur. - Maintain current follow-up schedule with primary care provider. Patient was informed and verbally consented to the use of an ambient scribe for clinic note documentation during this visit.
[2024-11-03 13:54] VITALS: BP 142/88; PULSE 78; RESP 16; TEMP 36.9; O2SAT 97; BMI 31.3
== END 2024-11-03 14:29 | disposition home or self-care (01) ==
PROVIDERS: PCP Family Medicine; Visit Provider Nurse Practitioner Family
DX: R51.9 Headache, unspecified (principal); R03.0 Elevated blood-pressure reading, without diagnosis of hypertension

== ENCOUNTER → 2024-11-03 13:46 | Outpatient (BNVA) | payer OTHER, SELFPAY | PROVIDERS: PCP Family Medicine; Visit Provider Nurse Practitioner Family | DX: R51.9 Headache, unspecified (principal); R03.0 Elevated blood-pressure reading, without diagnosis of hypertension | CPT/HCPCS: 99212 ==

== ENCOUNTER 2024-11-24 09:35 | Outpatient (REF) | payer OTHER, SELFPAY ==
--- OUTSIDE RECORDS SUMMARY | 2024-11-24 09:53 | XMS_ITS | Patient Health Record ---
Author Organization [facility] Address [address] [place] [phone] Care Team Providers Care Slat Basket Maker Helper Name Role Phone Heriberto, Harvey Primary Care Provider Unavailab Nikos Luong Unavailable [phone] ALLERGIES No Known Allergies RESULTS Component Value Reference Range Notes Pathology (Not yet reviewed by provider) Interpretation: Performing Lab:[facility], [address] [place] [phone] Notes/Report: REASON FOR REFERRAL No Information SOCIAL HISTORY Sex Assigned At : Social History Observation Description Sex Assigned At Unknown PROBLEMS Problem Type ICD Code Onset Dates Problem Status W/U Status Risk SNOMED Code Notes Problem Colon cancer screening (Z12.11) Active confirmed Colon can cer screening (449502068) Problem Encounter for other preprocedural examination (Z01.818) Active confirmed Pre-procedure evaluation check (472535852) Problem Diverticulosis of large intestine without perforation or abscess without bleeding (K57.30) Active confirmed Diverticul ar disease of colon (488042795) VITAL SIGNS Blood pressure diastolic 00 mm Hg 07/21/2024 Height 70 in 07/21/2024 Blood pressure systolic 00 mm Hg 07/21/2024 Weight 214 lbs 07/21/2024 BMI 30.70 kg/m2 07/21/2024 Encounters Encounter Location Date Provider Diagnosis [facility] [place] [address] [place] [phone] 10/05/2024 Nikos Crabtree Colon cancer screeni ng Z12.11 ; Colon polyps K63.5 ; Diverticulosis of large intestine without perforation or abscess without bleeding K57.30 and Other hemorrhoids K64.8 [facility] [address] [place] [phone] 07/21/2024 Nikos Crabtree Colon cancer screeni ng [...] Insured Coverage Start Date Coverage End Date [facility] [address] [address] [place], [place] [id number] NITISH JOHNSON Self - patient is the insured MEDICAL (GENERAL) HISTORY Medical History History ICD Code Denies NE,DM,CVA,Lung disease,renal dise ase Kidney stone Surgical History Surgery Date(Month/Year) Shoulder surgery-right Right knee surgery-ACL Ganglion on the left
--- OUTSIDE RECORDS SUMMARY | 2024-11-24 09:53 | XMS_ITS ---
Author Organization [facility] Address [address] [place] [address] Care Team Providers Care Repairer Shoe Sticks Name Role Phone Harvey Louis Primary Care Provider Unavailab Nikos Luong Unavailable [phone] REASON FOR VISIT screening PROBLEMS Problem Type ICD Code Onset Dates Problem Status W/U Status Risk SNOMED Code Notes Problem Diverticulosis of large intestine without perforation or abscess without bleeding (K57.30) Active confirmed Diverticul ar disease of colon (405197758) Encounters Encounter Location Date Provider [place] [facility] [place] [address] [place] [phone] 10/05/2024 Nikos Crabtree Colon cancer scree sean [...]
--- OUTSIDE RECORDS SUMMARY | 2024-11-24 09:53 | XMS_ITS ---
Author Organization [facility] Address [address] [place] [address] Care Team Providers Care Supervisor Pleating Name Role Phone Harvey Louis Primary Care Provider Unavailab Nikos Luong Unavailable [phone] ALLERGIES No Known Allergies REASON FOR VISIT Patient presents today for a colon screening PROBLEMS Problem Type ICD Code Onset Dates Problem Status W/U Status Risk SNOMED Code Notes Problem Colon cancer screening (Z12.11) Active confirmed Colon cancer screening (638990207) Problem Encounter for other preprocedural examination (Z01.818) Active confirmed Pre-procedure evaluation check (635668617) VITAL SIGNS BMI 30.70 kg/m2 07/21/2024 Blood pressure systolic 00 mm Hg 07/21/20 24 Blood pressure diastolic 00 mm Hg 024 Height 70 in 07/21/2024 Weight 214 lbs 07/21/2024 Encounters Encounter Location Date Provider Diagnosis [facility] [address] [place] [phone] 07/21/2024 Nikos Crabtree Colon cancer screeni ng [...]
[2024-11-24 10:53] LABS: Estimated Average Glucose 105 mg/dL; Hemoglobin A1C 140.0568 umol/L; Hemoglobin A1c % 5.3 % (<6.0)
[2024-11-24 11:01] LABS: Appearance Urine Clear; Color Urine Yellow; Glucose Urine UA Negative (Negative); Leukocyte Esterase Urine Negative (Negative); Nitrite Urine Negative (Negative); PH 6.5 (5.0-9.0); Specific Gravity - Urine >= 1.030 (1.005-1.025); UMIC TRIGGER UA YES; Urine Blood Negative (Negative); Urine Ketones Negative (Negative); Urine Protein 30 (1+) mg/dL (Neg-Trace)
[2024-11-24 11:10] LABS: Bacteria Urine None Seen (None Seen); Hyaline Casts Urine 0-2 /LPF (0-2); Squamous Epithelial Cell Urine 0-2 /HPF (0-2); WBC Urine 0-5 /HPF (0-5)
[2024-11-24 11:35] LABS: Alanine Aminotransferase 60 U/L (0-40); Albumin Level 4.1 g/dL (3.5-5.0); Alkaline Phosphatase 70 U/L (39-117); Anion Gap 10 (12-20); Aspartate Amino Transferase 36 U/L (5-37); Bilirubin Total 0.8 mg/dL (0.0-1.0); Blood Urea Nitrogen 16 mg/dL (9-16); Calcium 8.9 mg/dL (8.4-10.2); Carbon Dioxide 26 mmol/L (22-29); Chloride 109 mmol/L (96-108); Estimated Glomerular Filt Rate > 60; Glucose Fasting 127 mg/dL (60-99); Potassium 3.9 mmol/L (3.3-5.1); Sodium 141 mmol/L (135-145); Total Protein 6.6 g/dL (6.5-8.0)
== END 2024-11-24 09:36 | disposition home or self-care (01) ==
LOC: HO.LAB 09:35
PROVIDERS: PCP Family Medicine; Visit Provider Family Medicine
DX: Z00.00 Encounter for general adult medical examination without abnormal findings (principal); R74.8 Abnormal levels of other serum enzymes; R73.01 Impaired fasting glucose
CPT/HCPCS: 36415; 80053; 81001; 83036

== ENCOUNTER 2024-12-04 10:47 | Outpatient (AMB) | payer OTHER, SELFPAY ==
--- NOTE | 2024-12-04 11:20 | A.OFFPC_ITS ---
Vital Signs 12/04/24 11:22 Height 5 ft 11 in Weight 230 lb BMI 32.1 BP 140/90 H Blood Pressure Location Rt brachial Position Sitting Respiration 14 Pulse 74 Pulse Source Pulse Oximeter Pulse Oximetry (%) 96 Oxygen Delivery Method Room Air Intake Visit Reasons: f/u el liver enzymes, elevated fasting Intake Note: lab review and consistent pressure on the RT side with nose bleed Allergies No Known Allergies Allergy (Verified 12/04/24 11:22) Medication List - Last Reconciled 12/04/24 by Harvey Louis MD No Known Home Meds Tobacco use date assessed: 11/03/24 Dental Screening Dental Screen Date: 11/03/24 HPI f/u el liver enzymes, elevated fasting HPI Details 59 y/o male presents to f/u elevated bubba er enzymes, labs, elevated fasting glucose. Labs drawn 11/24/24. Reviewed labs with pt. A1c 5.3%. Elevated ALT of 60. PFSH Medical History (Updated 12/04/24 @ 12:13 by Berto Reynoso) Renal calculi Surgical History Hx of excision of mass History of repair of anterior cruciate ligament of right knee Hx of shoulder surgery Social History Housing: House Patient Tobacco Use Status: Never used Tobacco e-Cigarette/Vaping Use: Never Used service: No Current occupational status: unemployed Current occupational exposures/hazards: No Cognitive needs: No Hearing needs: No Vision needs: No Questionnaire Thrive Questionnaire Date Thrive assessed: 12/20/22 I am a: Patient What is your living situation today?: I choose not to answer this question Within the past 12 months, did the food you bought not last and you didn't have the money to get more?: I choose not to answer this question Within the past 12 months, did you worry whether your food would run out before you got money to buy more?: I choose not to answer this question Do you have trouble paying for medicines?: I choose not to answer this question Do you have trouble getting transportation to medical appointments?: I choose not to answer this question Do you have trouble paying your heating and electricity bill?: I choose not to answer this question Do you have trouble taking care of your child, family member or friend?: I choose not to answer this question Do you have trouble with day-to-day activities such as bathing, preparing meals, shopping, managing finances, etc.?: I choose not to answer this question Are you currently unemployed and looking for a job?: I choose not to answer this question Are you interested in more education?: I choose not to answer this question Please select the resources that you would like help with: None Currently or been in a relationship where the following occur: I choose not to answer THRIVE Score: 0 AUDIT C Alcohol Use Questionnaire (AUDIT-C) 1. How often do you have a drink containing alcohol?: Never Total Score: 0 SUYAPA-7 AMB Questionnaire SUYAPA-7 Date SUYAPA - 7 assessed: 12/20/22 Feeling nervous, anxious, or on edge: 0 = Not at all Not being able to stop or control worryin = Not at all Worrying too much about different things: 0 = Not at all Trouble relaxin = Not at all Being so restless that it is hard to sit still: 0 = Not at all Becoming easily annoyed or irritable: 0 = Not at all Feeling afraid as if something awful might happen: 0 = Not at all Total SUYAPA-7 score (0-4 normal; 5-9 mild; 10-14 moderate; 15-21 severe): 0 Source: Developed by Drs. Nikos Mukherjee, Cyndie King, Jeremy Pederson and colleagues, with an educational carolyn from [facility]. Review of Systems Const Denies chills, Denies fatigue, Denies fever(s) and Denies weakness ENT Denies dizziness and Reports nasal congestion Card Denies dyspnea Resp Denies cough, Denies dyspnea, Denies wheezing and Denies other (shortness of breath) Musc Denies numbness and Denies tingling Neuro Denies dizziness, Denies numbness, Denies tingling and Denies weakness Psych Denies anxiety and Denies depression Endo Denies fatigue Aller/Immun Denies wheezing Physical exam (Primary Care) Vital Signs: Last Vital Signs Pulse 74 12/04/24 11:22 Resp 14 12/04/24 11:22 BP 140/90 H 12/04/24 11:22 Pulse Ox 96 12/04/24 11:22 Oxygen Delivery Method Room Air 12/04/24 11:22 BMI result Body Mass Index 32.1 Tobacco/Smoking Status: Tobacco use Status Tobacco use date assessed 11/03/24 12/04/24 11:26 Patient Tobacco Use Status Never used Tobacco 12/04/24 11:26 e-Cigarette/Vaping Use Never Used 12/04/24 11:26 Thrive Assessment: Date of Thrive Assessment Date Thrive assessed 12/20/22 12/04/24 11:26 Currently or been in a relationship where the following occur: I choose not to answer Const General: well developed; No acute distress Nutritional Appearance: well nourished Orientation/consciousness: patient oriented x3 HENMT Other: R sided nasal congestion with clear discharge Head: Yes normocephalic and Yes atraumatic Eyes General: appearance normal, both eyes and all related structures Pupils: Equal, round and reactive pupils present EOM: EOMs intact bilaterally Resp Effort & Inspection: normal respiratory effort Neuro General: patient oriented x3 and gait normal Cranial nerves: Yes CN's II-XII intact bilaterally and Yes Equal, round and jackie ctive pupils present Psych Affect: normal affect Coding Level of Care Code Est Pt Level 4 (23933) Diagnoses Elevated fasting glucose R73.01 Elevated liver enzymes R74.8 Nasal bleeding R04.0 Sleep apnea G47.30 Headache R51.9 Assessment & Plan Assessment & Plan (1) Elevated fasting glucose: Code(s): R73.01 - Impaired fasting glucose Category: Medical Plan: A1c?is?within?normal?range Likely?insulin?resistance Encouraged?weight?loss?and?a?diet?lower?in?sugars?and?starches (2) Elevated liver enzymes: Code(s): R74.8 - Abnormal levels of other serum enzymes Category: Medical Plan: Ongoing?elevated?liver?enzyme Encouraged?weight?loss His?prior?liver?ultrasound?did?not?show?any?hepatic?steatosis?at?the?time He?denies?any?alcohol?use Will?check?hepatitis?labs with?next?blood?draw Will?continue?to?monitor (3) Nasal bleeding: Code(s): R04.0 - Epistaxis Category: Medical Plan: Episode?of?epistaxis?x1 He?was?referred?to?ENT?but?does?not?have?a?soon?appointment Currently?I?do?not?see?any?blood?in?the?nasal?vault?this?was?quite?sometime?ago. Does?have?significant?right?sided?nasal?congestion?with?some?clear?discharge. (4) Sleep apnea: Code(s): G47.30 - Sleep apnea, unspecified Category: Medical Plan: Patient?has?had? increased?blood?pressure,?changes?in?his?sleep?patterns,?gasps?while?sleeping He?also?notes?headaches Referring?him?to?Sleep?Medicine (5) Headache: Code(s): R51.9 - Headache, unspecified Category: Medical Plan: Patient?notes?some?right-sided?headaches. Cranial?nerves?2?through?12?intact?and?no?focal?deficits. He?has?significant?right?nasal?congestion?and?I?am?giving?him?a?nasal?steroid He?also?has?an?appointment?with?ENT Orders: Referrals Sleep Medicine Referral G47.30 - Sleep apnea, unspecified Medications: New fluticasone propionate 50 mcg/actuation (Flonase Allergy Relief) administer into each nostril 1 spray intranasal Q12H 30 days 16 grams 2RF losartan 25 mg PO DAILY 90 days 90 tabs 3RF
[2024-12-04 11:22] VITALS: BP 140/90; PULSE 74; RESP 14; O2SAT 96; BMI 32.1
== END 2024-12-04 12:10 | disposition home or self-care (01) ==
PROVIDERS: PCP Family Medicine; Visit Provider Family Medicine
DX: R73.01 Impaired fasting glucose (principal); R74.8 Abnormal levels of other serum enzymes; R04.0 Epistaxis; G47.30 Sleep apnea, unspecified; R51.9 Headache, unspecified

== ENCOUNTER → 2024-12-04 10:47 | Outpatient (BNVA) | payer OTHER, SELFPAY | PROVIDERS: PCP Family Medicine; Visit Provider Family Medicine | DX: R73.01 Impaired fasting glucose (principal); R74.8 Abnormal levels of other serum enzymes; R04.0 Epistaxis; R51.9 Headache, unspecified; G47.30 Sleep apnea, unspecified | CPT/HCPCS: 99212 ==

== ENCOUNTER 2025-06-15 08:36 | Outpatient (AMB) | payer OTHER, SELFPAY ==
--- OUTSIDE RECORDS SUMMARY | 2024-10-05 08:30 | XMS_ITS ---
Author Organization [facility] Address [address] [place] [address] Care Team Providers Care Hedge Fund Trader Name Role Phone Harvey Louis Primary Care Provider Unavailab Nikos Luong Unavailable [phone] REASON FOR VISIT screening Problems Problem Type SNOMED Code ICD Code Onset Dates Problem Status W/U Status Risk Notes Problem Diverticulosis o f large intestine without perforation or abscess without bleeding (K57.30) Active confirmed Encounters Encounter Location Date Provider Diagnosis [facility] [place] [address] [place] [phone] 10/05/2024 Nikos Crabtree Colon cancer scree sean [...] * NITISH JOHNSONDOB: [birth year] (60 yo M)Acc No.[id number]:10/05/2024 COLON WITH MAC Patient: NITISH MCLAIN Provider: Jet Crabtree MD :1965 A ge:59 Y S ex:Male Date:10/05/2024 Address:[address] [place], [place] [phone] Pcp:Harvey Louis Subjective: * Chief Complaints: * [...] Date: 12/05/2023 Generated for Devon rivers/Jacque/Marichuyitting on: 0 06/15/2025 08:54 AM EDT
--- NOTE | 2025-06-15 08:38 | A.OFFPC_ITS ---
Vital Signs 06/15/25 08:45 Height 5 ft 11 in Weight 224 lb BMI 31.2 BP 132/88 Blood Pressure Location Lt brachial Position Sitting Respiration 15 Pulse 86 Pulse Source Pulse Oximeter Temp 97.9 F Temp Source Temporal Artery Scan Pulse Oximetry (%) 95 Oxygen Delivery Method Room Air Intake Visit Reasons: left knee pain/went to [facility] on 06/01 Intake Note: Gonzalez presents in the office today for left knee pain. Allergies No Known Allergies Allergy (Verified 06/15/25 08:43) Medication List - Last Reconciled 06/15/25 by Harvey Louis MD fluticasone propionate 50 mcg/actuation (Flonase Allergy Relief) 1 spray intranasal Q12H 30 days Tobacco use date assessed: 06/15/25 Dental Screening Dental Screen Date: 06/15/25 Did you have a dental visit in the last 12 months?: Yes Did you have a dental problem in the last 6 months where you did not have access to dental care?: No Was dental information given to patient?: Patient has dentist HPI left knee pain/went to [facility] on 06/01 HPI Details Pt presents to f/u L knee pain. Patient presented with left knee to pain today to follow-up on x-rays taken at [facility] about 2 weeks ago. Patient had ?bent knee awkwardly 1 month ago? and x-ray shows normal alignment without fracture but does show a small effusion as well as some joint space narrowing. May have synovial inflammation or possible internal derangement. Hx of elevated fasting glucose. A1c today 5.2%. [facility] Medical History (Updated 06/15/25 @ 09:20 by Harvey Louis MD) Renal calculi Surgical History Hx of excision of mass History of repair of anterior cruciate ligament of right knee Hx of shoulder surgery Social History (Updated 06/15/25 @ 08:45 by Radha Cheung MA) Housing: House Alcohol intake: never Patient Tobacco Use Status: Never used Tobacco e-Cigarette/Vaping Use: Never Used Second Hand Smoke Exposure: No service: No Current occupational status: unemployed Current occupational exposures/hazards: No Cognitive needs: No Hearing needs: No Vision needs: No Questionnaire PHQ-9 Over the last 2 weeks, how often have you been bothered by any of the following problems? 1. Little interest or pleasure in doing things: not at all 2. Feeling down, depressed, or hopeless: not at all 3. Trouble falling or staying asleep, or sleeping too much: not at all 4. Feeling tired or having little energy: not at all 5. Poor appetite or overeating: not at all 6. Feeling bad about yourself - or that you are a failure or have let yourself or your family down: not at all 7. Trouble concentrating on things, such as reading the newspaper or watching television: not at all 8. Moving or speaking so slowly that other people could have noticed. Or the opposite - being so fidgety or restless that you have been moving around a lot more than usual: not at all 9. Thoughts that you would be better off or of hurting yourself in some way: not at all Total score: 0 Source: Developed by Drs. Nikos Mukherjee, Cyndie King, Jeremy Pederson and colleagues, with an educational carolyn from [employer]. Thrive Questionnaire Date Thrive assessed: 12/04/24 I am a: Patient What is your living situation today?: I choose not to answer this question Within the past 12 months, did the food you bought not last and you didn't have the money to get more?: I choose not to answer this question Within the past 12 months, did you worry whether your food would run out before you got money to buy more?: I choose not to answer this question Do you have trouble paying for medicines?: I choose not to answer this question Do you have trouble getting transportation to medical appointments?: I choose not to answer this question Do you have trouble paying your heating and electricity bill?: I choose not to answer this question Do you have trouble taking care of your child, family member or friend?: I choose not to answer this question Do you have trouble with day-to-day activities such as bathing, preparing meals, shopping, managing finances, etc.?: I choose not to answer this question Are you currently unemployed and looking for a job?: I choose not to answer this question Are you interested in more education?: I choose not to answer this question Please select the resources that you would like help with: None Currently or been in a relationship where the following occur: I choose not to answer THRIVE Score: 0 SUYAPA-7 AMB Questionnaire SUYAPA-7 Date SUYAPA - 7 assessed: 12/20/22 Source: Developed by Drs. Nikos Mukherjee, Cyndie King, Jeremy Pederson and colleagues, with an educational carolyn from [employer]. Review of Systems Const Denies chills, Denies fatigue, Denies fever(s), Denies headache(s) and Denies weakness ENT Denies dizziness and Denies headache(s) Card Denies dyspnea Resp Denies cough, Denies dyspnea, Denies wheezing and Denies other (shortness of breath) Musc Details: L knee pain Denies numbness and Denies tingling Neuro Denies dizziness, Denies headache(s), Denies numbness, Denies tingling and Denies weakness Psych Denies anxiety and Denies depression Endo Denies fatigue Aller/Immun Denies wheezing Physical exam (Primary Care) Vital Signs: Last Vital Signs Temp 97.9 F 06/15/25 08:45 Pulse 86 06/15/25 08:45 Resp 15 06/15/25 08:45 BP 132/88 06/15/25 08:45 Pulse Ox 95 06/15/25 08:45 Oxygen Delivery Method Room Air 06/15/25 08:45 BMI result Body Mass Index 31.2 Tobacco/Smoking Status: Tobacco use Status Tobacco use date assessed 06/15/25 06/15/25 08:48 Patient Tobacco Use Status Never used Tobacco 06/15/25 08:45 e-Cigarette/Vaping Use Never Used 06/15/25 08:45 PHQ-9: PHQ-9 Score PHQ-9: Total score 0 06/15/25 08:39 Thrive Assessment: Date of Thrive Assessment Date Thrive assessed 12/04/24 06/15/25 08:39 Currently or been in a relationship where the following occur: I choose not to answer Const General: well developed; No acute distress Nutritional Appearance: well nourished Orientation/consciousness: patient oriented x3 HENMT Head: Yes normocephalic and Yes atraumatic Eyes General: appearance normal, both eyes and all related structures Pupils: Equal, round and reactive pupils present EOM: EOMs intact bilaterally Resp Effort & Inspection: normal respiratory effort Neuro General: patient oriented x3 and gait normal Cranial nerves: Yes Equal, round and reactive pupils present Psych Affect: normal affect Results AMB Hemoglobin A1c AMB Hemoglobin A1c 5.4 % Last Edit by Radha Cheung MA on 06/15/25 09:16 Coding Level of Care Code Est Pt Level 4 (80401) Diagnoses Left knee pain M25.562 Elevated fasting glucose R73.01 Hypertension I10 Assessment & Plan Assessment & Plan (1) Left knee pain: Code(s): M25.562 - Pain in left knee Category: Medical Plan: Patient presented with left knee to pain today to follow-up on x-rays taken at [facility] about 2 weeks ago. Patient had ?bent knee awkwardly 1 month ago? and x-ray shows normal alignment without fracture but does show a small effusion as well as some joint space narrowing. May have synovial inflammation or possible internal derangement. More likely some synovial inflammation which is already improving. He can use naproxen and ice. He can use a knee wrap when walking or mowing his lawn. Start physical therapy If not improving or worsening at any time, he can let me know and we will have him see ortho (2) Elevated fasting glucose: Code(s): R73.01 - Impaired fasting glucose Category: Medical Plan: A1c 5.2% which is in normal range. Can continue to assess periodically (3) Hypertension: Code(s): I10 - Essential (primary) hypertension Category: Medical Plan: Blood pressure is somewhat elevated today and he has been off losartan. Recommend he resume this Will follow-up at next visit Orders: Orders AMB Hemoglobin A1c Today R73.01 - Impaired fasting glucose PT Evaluation and Treatment Today M25.562 - Pain in left knee Medications: New naproxen 500 mg PO BID PRN 60 tabs 0RF pain 30 days Refilled losartan 25 mg PO DAILY 90 tabs 3RF 90 days
[2025-06-15 08:45] VITALS: BP 132/88; PULSE 86; RESP 15; TEMP 36.6; O2SAT 95; BMI 31.2
--- OUTSIDE RECORDS SUMMARY | 2025-06-15 08:54 | XMS_ITS | Clinical Summary ---
Author Organization [facility] Address [address] [facility] [facility] [address] [place] [id number] Phone Care Team Providers Care Digital Media Planner Name Role Phone Harvey Louis MD Primary Care Provider Allergies Active Allergy Reactions Criticality Noted Date Comments Other Sneezing 05/01/2024 Cat saliva Medications naproxen (NAPROSYN) 500 MG tablet Take 1 tablet (500 mg total) by mouth 2 (two) times a day for 3 days. 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/2025 Encounter for screening for malignant neoplasm o f colon 05/01/2024 Family history of colon cancer 05/01/2024 Encounters Date Type Department Care Team Description 06/01/2025 10:05 AM EDT Hospital Encounter [facility] [address] [place] [id number] Giselle Mata FNP 06/01/2025 9:50 AM EDT Office Visit [facility] at [address] [address] Giselle Mata FNP Knee strain, left, initial encounter (Primary Dx); Arthritis of left knee 03/20/2025 4:30 PM EDT Office Visit [facility] at [address] [address] Wendy Chen CNP Splinter in skin (Primary Dx) from Last 3 Months Immunizations Immunization Administration Dates Next Due Tdap 03/20/2025 Social History Tobacco Use Types Packs/Day Years Used Date Smoking Tobacco: Never Smokeless Tobacco: Never Tobacco Cessation:Counseling Given: Not Answered Education Answer Date Recorded Are you interested [...] on file Sexual Orientation Not on file Last Filed Vital Signs Vital Sign Reading Time Taken Comments Blood Pressure 169/78 06/01/2025 9:55 AM EDT Pulse 80 06/01/2025 9:55 AM EDT Temperature 36.6 C (97.8 F) 06/01/2025 9:55 AM EDT Respiratory Rate 18 06/01/2025 9:55 AM EDT Oxygen Saturation 100% 06/01/2025 9:55 AM EDT Inhaled Oxygen Concentration - - Weight 99.8 kg (220 lb) 05/01/2024 2:22 PM EDT p er pt Height - - Body Mass Index - - Plan of Treatment Health Maintenance Due Date Last Done Comments LIPID PANEL 1965 DEPRESSION SCREENING 1977 HEPATITIS C SCREENING 1983 HIV ONE-TIME SCREENING (18-6 5 YEARS) 1983 COLOGUARD 2010 COLONOSCOPY 2010 COLORECTAL CANCER SCREENING 2010 FIT TEST 2010 FOBT 2010 SIGMOIDOSCOPY 2010 VIRTUAL COLONOSCOPY 2010 PNEUMOCOCCAL VACCINES (50+ years) (1 of 1 - PCV) 2015 ZOSTER VACCINES (1 of 2) 2015 COVID-19 VACCINE (2023-2 5 season) 2024 05/17/2021, 04/19/2021 Adult Td,Tdap Booster 03/20/2035 03/20/2025 , 08/11/2018 RSV VACCINE (1 - 1-dose 75+ series) 01/22/2040 SMOKING STATUS SCREENING (On ce After 26 Yrs) Completed 06/01/2025 HEPATITIS A VACCINES Aged Out No long er eligible based on patient's age to complete this topic HIB VACCINES Aged Out No longer eligi ble based on patient's age to complete this topic MENINGOCOCCAL VACCINES (ACWY) Aged Out No longer eligible based on patient's age to complete this topic MENINGOCOCCAL VACCINES (B) Aged Out N o longer eligible based on patient's age to complete this topic Medical Devices Not on file Procedures Procedure Name Priority Date/Time Associated Diagnosis Comments ORTHOPEDIC INJURY TREATMENT Routine 06/01/2025 12:01 PM EDT Knee strain, left, initial encounter Arthritis of left knee XR KNEE 4 OR MORE VIEWS (LEFT) Urgent/patient waiting 06/01/2025 10:14 AM EDT Knee strain, left, initial encounter FOREIGN BODY REMOVAL Routine 03/20/2025 4:37 PM EDT Splinter in skin from Last 3 Months Results * ORTHOPEDIC INJURY TREATMENT (06/01/2025 12:01 PM EDT) Other Narrative Giselle Mata FNP - 06/01/2025 12:01 PM EDT Giselle Mata FNP 06/01/2025 12:07 PM Orthopedic Injury Treatment/Splint/Cast Application Date/Time: 06/01/2025 12:01 PM Performed by: Giselle Mata FNP Authorized by: Giselle Mata FNP Injury Injury location: Knee Location details: Left knee Injury type: Soft tissue Pre-procedure assessment Neurovascular status: Neurovascularly intact Distal perfusion: normal Neurological function: normal Range of motion: normal Procedure details Supplies used: Elastic bandage Post-procedure assessment Neurovascular status: Neurovascularly intact Distal perfusion: normal Neurological function: normal Range of motion: normal Patient tolerance: Patient tolerated the procedure well with no immediate complications Giselle ERAZO PROCEDURE/MINOR SURGICAL OR DERABLES Final Result * XR KNEE 4 OR MORE VIEWS (LEFT) (06/01/2025 10:14 AM EDT) Anatomical Region Laterality Modality Knee Left Computed Radiogr aphy 06/01/2025 11:1 4 AM EDT Impressions 06/01/2025 11:15 AM EDT No fracture or dislocation. Small effusion. Narrative 06/01/2025 11:15 AM EDT XR KNEE 4 OR MORE VIEWS (LEFT) Referring clinician's provided indication for this examination in [facility]: Trauma; bent awkwardly one month ago COMPARISON: None. FINDINGS: No fracture. Normal alignment. Mild medial femorotibial cartilage space narrowing. Small effusion. Procedure Note Cathy Anne MD - 06/01/2025 XR KNEE 4 OR MORE VIEWS (LEFT) Referring clinician's provided indication for this examination in [facility]:Trauma; bent awkwardly one month ago COMPARISON: None. FINDINGS: No fracture. Normal alignment. Mild medial femorotibial cartilage spacenarrowing. Small effusion. IMPRESSION: No fracture or dislocation. Small effusion. Giselle Mata COATING INSPECTOR IMG XR LOWER EXTREMITY Afua l Result * FOREIGN BODY REMOVAL (03/20/2025 4:37 PM EDT) Other Narrative Wendy Chen CNP - 03/20/2025 4:37 PM EDT Wendy Chen CNP 03/20/2025 4:49 PM Foreign Body Removal Date/Time: 03/20/2025 4:37 PM Performed by: Wendy Chen CNP Authorized by: Wendy Chen CNP Location: Body area: Skin General location: Upper extremity Location details: Right index finger Patient sedated?: No Procedure Details: Localization method: Visualized Removal mechanism: Forceps Dressing: Antibiotic ointment Depth: Subcutaneous Complexity: Simple Objects recovered (#): 1 Objects recovered: Splinter from plant Patient tolerance: Patient tolerated the procedure well with no immediate complicationsComments: Splinter was underneath the nailbed-removed easily Wendy Chen CNP PROCEDURE/MINOR SURGICAL OR DERABLES Final Result from Last 3 Months Insurance [facility] Care Teams Digital Media Planner Relationship Specialty Start Date End Date Harvey Louis MD [address] [place] [address] PCP - General 05/01/24 Additional Source Comments The information contained in this document represents components of the legal health record. It is not the complete legal health record.[facility]
== END 2025-06-15 09:17 | disposition home or self-care (01) ==
LOC: HO.HMCFM 08:37
PROVIDERS: PCP Family Medicine; Visit Provider Family Medicine
DX: M25.562 Pain in left knee (principal); R73.01 Impaired fasting glucose; I10 Essential (primary) hypertension

== ENCOUNTER → 2025-06-15 08:36 | Outpatient (BNVA) | payer OTHER, SELFPAY | PROVIDERS: PCP Family Medicine; Visit Provider Family Medicine | DX: M25.562 Pain in left knee (principal); R73.01 Impaired fasting glucose; I10 Essential (primary) hypertension; Z13.30 Encounter for screening examination for mental health and behavioral disorders, unspecified | CPT/HCPCS: 83036; 99212 ==

== ENCOUNTER 2025-08-16 08:49 | Outpatient (RCR) | payer OTHER, SELFPAY ==
--- NOTE | 2025-07-27 08:47 | MHC.PT.EP ---
[facility] [place] Office [place] Office [place] Office [address] Tucker Soni [address] [phone] F: [phone] F: [phone] F: [phone] F: [phone] Physical Therapy Plan of Care Date of Evaluation: 07/26/25 Date of Surgery: Diagnosis: LEFT KNEE PAIN (KP) Assessment: NITISH REPORTS ON APROX 05/06 HE WAS WALKING WHEN HE FELT HIS KNEE GO BACKWARDS THEN FORWARDS WITH SHARP PAIN IN ANTERIOR KNEE. PAIN HAS GRADUALLY CHANGED AND NOW IS PREDOMINANTLY IN POSTERIOR KNEE WITH MAIN COMPLAIN OF SWELLING AND PRESSURE. HE REPORTS INCREASED DIFFICULTY WITH STATIC STANDING, WALKING AND STAIRS. HE REPORTS HE HAS NOT BEEN ABLE TO PERFORM YARD WORK. REST AND ICE HELPS TO ALLEVIATE SYMPTOMS. DENIES ALTERED SENSATION. HE LIVES IN 2 FLOOR PRIVATE HOME, ASSISTS MOTHER WITH DAILY CARE. UPON EXAM IMPAIRMENTS INCLUDE DECREASED HIP STRENGTH AND STABILITY, DECREASED ROM AT KNEE JOINTS BRANDON, ALTERED SOFT TISSUE MOBILITY AND INCREASED PAIN. Pt PRESENTS WITH SIGNIFICANT GAIT DEVIATION CHARACTERIZED BY NARROW STEP WIDTH, SHORTENED STRIDE LENGTH WITH LEFT LEG BOWED AND HYPEREXT AT KNEE DURING HEEL STRIKE, RIGHT INCOMPLETE KNEE EXT AT HEEL STRIKE, ACHILLES WITH INCREASED VALGUS ANGLE. THESE GAIT DEVIATIONS ARE CAUSED BY USCULAR LENGTH AND STRENGTH IMBALANCES AND LEADING TO PATTERNED MOVEMENT STYLES AND INCREASED PAIN. FUNCTIONAL LIMITATIONS INCLDE DECREASED ABILITY TO PERFORM WALKING, STATIC STANDING AND STAIR NEGOTIATION. Pt REPORTS DECREASED ABILITY TO PERFORM HOMEMAKING TASKS, YARD WORK AND FITNESS ACTIVITIES. HE ENDORSES DECREASED PARTICIPATION IN COMMUNITY AND RECREATIONAL ACTIVITIES Frequency and Duration: The patient will be seen 2 X WEEK FOR 6 WEEKS Short Term Goals: INITIATE HEP AND PROMOTE SELF MANAGEMENT OF SYMPTOMS Senior Care Goals: TO RETURN TO WALKING FOR PLEASURE A MINIMUM OF 20 MINUTES WITHOUT INCREASE IN PAIN TO DEMONSTRATE IMPROVED FOOT AND ANKLE MECHANICS WITH GAIT INCLUDING FULL KNEE EXTENSION RIGHT, DECREASED KNEE HYPEREXT LEFT AND NORMALIZED STRIDE WIDTH AND LENGTH INDEPENDENT HEP AND SELF MANAGEMENT OF SYMPTOMS TO DEMONSTRATE FULL HIP STRENGTH EQUAL BRANDON Treatment Plan: Modalities to reduce pain, spasms and effusion. Manual therapy to restore motion and function. Therapeutic exercise to improve strength and flexibility. Neuromuscular re-education for posture and balance. Therapeutic activities to return to functional activities of daily living. Electronically signed by: JOEY HOLM PT DPT Please sign and return to therapist. Thank you for your referral.
--- NOTE | 2025-08-03 09:01 | MHC.PT.EP ---
[facility] [place] Office [place] Office [place] Office [address] Tucker Soni [address] [phone] F: [phone] F: [phone] F: [phone] F: [phone] Physical Therapy Plan of Care Date of Evaluation: 07/26/25 Date of Surgery: Diagnosis: LEFT KNEE PAIN (KP) Assessment: NITISH REPORTS ON APROX 05/06 HE WAS WALKING WHEN HE FELT HIS KNEE GO BACKWARDS THEN FORWARDS WITH SHARP PAIN IN ANTERIOR KNEE. PAIN HAS GRADUALLY CHANGED AND NOW IS PREDOMINANTLY IN POSTERIOR KNEE WITH MAIN COMPLAIN OF SWELLING AND PRESSURE. HE REPORTS INCREASED DIFFICULTY WITH STATIC STANDING, WALKING AND STAIRS. HE REPORTS HE HAS NOT BEEN ABLE TO PERFORM YARD WORK. REST AND ICE HELPS TO ALLEVIATE SYMPTOMS. DENIES ALTERED SENSATION. HE LIVES IN 2 FLOOR PRIVATE HOME, ASSISTS MOTHER WITH DAILY CARE. UPON EXAM IMPAIRMENTS INCLUDE DECREASED HIP STRENGTH AND STABILITY, DECREASED ROM AT KNEE JOINTS BRANDON, ALTERED SOFT TISSUE MOBILITY AND INCREASED PAIN. Pt PRESENTS WITH SIGNIFICANT GAIT DEVIATION CHARACTERIZED BY NARROW STEP WIDTH, SHORTENED STRIDE LENGTH WITH LEFT LEG BOWED AND HYPEREXT AT KNEE DURING HEEL STRIKE, RIGHT INCOMPLETE KNEE EXT AT HEEL STRIKE, ACHILLES WITH INCREASED VALGUS ANGLE. THESE GAIT DEVIATIONS ARE CAUSED BY USCULAR LENGTH AND STRENGTH IMBALANCES AND LEADING TO PATTERNED MOVEMENT STYLES AND INCREASED PAIN. FUNCTIONAL LIMITATIONS INCLDE DECREASED ABILITY TO PERFORM WALKING, STATIC STANDING AND STAIR NEGOTIATION. Pt REPORTS DECREASED ABILITY TO PERFORM HOMEMAKING TASKS, YARD WORK AND FITNESS ACTIVITIES. HE ENDORSES DECREASED PARTICIPATION IN COMMUNITY AND RECREATIONAL ACTIVITIES Frequency and Duration: The patient will be seen 2 X WEEK FOR 6 WEEKS Short Term Goals: INITIATE HEP AND PROMOTE SELF MANAGEMENT OF SYMPTOMS Nursing Home Goals: TO RETURN TO WALKING FOR PLEASURE A MINIMUM OF 20 MINUTES WITHOUT INCREASE IN PAIN TO DEMONSTRATE IMPROVED FOOT AND ANKLE MECHANICS WITH GAIT INCLUDING FULL KNEE EXTENSION RIGHT, DECREASED KNEE HYPEREXT LEFT AND NORMALIZED STRIDE WIDTH AND LENGTH INDEPENDENT HEP AND SELF MANAGEMENT OF SYMPTOMS TO DEMONSTRATE FULL HIP STRENGTH EQUAL BRANDON Treatment Plan: Modalities to reduce pain, spasms and effusion. Manual therapy to restore motion and function. Therapeutic exercise to improve strength and flexibility. Neuromuscular re-education for posture and balance. Therapeutic activities to return to functional activities of daily living. Electronically signed by: JOEY HOLM PT DPT Please sign and return to therapist. Thank you for your referral.
--- NOTE | 2025-09-08 10:13 | MHC.PT.DC ---
[facility] [place] Office [place] Office [place] Office [address] Tucker Soni [address] [phone] F: [phone] F: [phone] F: [phone] F: [phone] Physical Therapy Discharge Report Diagnosis: LEFT KNEE PAIN (KP) Date of Surgery: Date of Evaluation: 07/26/25 Date of Discharge: 09/08/25 Treatments to Date: 6 Cancellations to Date: 0 No Shows to Date: 0 Discharge Status: Discharge Summary: Pt ATTENDED 6 VISITS OF PT THEN ELECTED TO NOT SCHEDULE FURTHER TREATMENTS. HE HAS A COMPREHENSIVE HOME PROGRAM WHICH HE CAN CONTINUE WITH INDEPENDENTLY Electronically signed by: JOEY HOLM PT DPT Please sign and return to therapist. Thank you for your referral.
== END 2025-09-08 10:12 | disposition home or self-care (01) ==
LOC: HO.PT 08:49
PROVIDERS: PCP Family Medicine; Visit Provider Family Medicine
DX: M25.562 Pain in left knee (principal)
CPT/HCPCS: 97110; 97162; 97530; 97535

== ENCOUNTER 2025-09-08 11:18 | Outpatient (REF) | payer OTHER, SELFPAY ==
--- OUTSIDE RECORDS SUMMARY | 2024-10-05 08:30 | XMS_ITS ---
Author Organization [facility] Address [address] [place] [address] Care Team Providers Care Hotel Engineer Name Role Phone Harvey Louis Primary Care Provider Unavailab Nikos Luong Unavailable [phone] REASON FOR VISIT screening Problems Problem Type SNOMED Code ICD Code Onset Dates Problem Status W/U Status Risk Notes Problem Diverticular disease of colon (482797126) Diverticulosis of large intestine without perforation or abscess without bleeding (K57.30) Active confirmed Encounters Encounter Location Date Provider Diagnosis [facility] [place] [address] [place] [phone] 10/05/2024 Nikos Crabtree Colon cancer scree sean [...] * NITISH JOHNSONDOB: [birth year] (60 yo M)Acc No.[id number]:10/05/2024 COLON WITH MAC Patient: Nathan GAELISHANITISH Simpson Provider: Jet Crabtree MD :1965 A ge:59 Y S ex:Male Date:10/05/2024 Address:[address] [place] [address] Pcp:Harvey Louis Subjective: * Chief Complaints: * [...] Crabtree MD Date: 12/05/2023 Generated for Devon rivers/Jacque/Margarita on: 03:28 PM EDT
--- OUTSIDE RECORDS SUMMARY | 2025-06-01 10:05 | XMS_ITS | Encounter Summary ---
Author Organization [facility] Address [address] [place] [phone] Phone Care Team Providers Care Cashiers Bussers Food Runners Name Role Phone Harvey Louis MD Primary Care Provider Encounter Details Date Type Department Care Team (Late st Contact Info) Description 06/01/2025 10:05 AM EDT Hospital Encounter [facility] [address] [place] [phone] Giselle Mata FNP [address] [place] [address] [phone] JULIO [email or web address] Social History Tobacco Use Types [...] clinician's provided indication for this examination in [facility]: Trauma; bent awkwardly one month ago COMPARISON: None. FINDINGS: No fracture. Normal alignment. Mild medial femorotibial cartilage space narrowing. Small effusion. Procedure Note Cathy Anne MD - 06/01/2025 XR KNEE 4 OR MORE VIEWS (LEFT) Referring clinician's provided indication for this examination in [facility]:Trauma; bent awkwardly one month ago COMPARISON: None. FINDINGS: No fracture. Normal alignment. Mild medial femorotibial cartilage spacenarrowing. Small effusion. IMPRESSION: No fracture or dislocation. Small effusion. Giselle Mata REFRACTORY MANAGER IMG XR LOWER EXTREMITY Afua l Result documented in this encounter Visit Diagnoses Not on filedocumented in this encounter Care Teams Cashiers Bussers Food Runners Relationship Specialty Start Date End Date Harvey Louis MD [address] [place] [address] PCP - General 05/01/24 documented as of this encounter Additional Source Comments The information contained in this document represents components of the legal health record. It is not the complete legal health record.[facility]
[2025-09-08 12:41] LABS: Appearance Urine Clear; Glucose Urine UA Negative (Negative); PH 6.5 (5.0-9.0); Specific Gravity - Urine 1.020 (1.005-1.025)
[2025-09-08 12:42] LABS: Alanine Aminotransferase 67 U/L (0-40); Albumin Level 4.5 g/dL (3.5-5.0); Alkaline Phosphatase 74 U/L (39-117); Anion Gap 9 (12-20); Aspartate Amino Transferase 41 U/L (5-37); Blood Urea Nitrogen 15 mg/dL (9-16); Calcium 9.3 mg/dL (8.4-10.2); Carbon Dioxide 29 mmol/L (22-29); Chloride 106 mmol/L (96-108); Cholesterol 198 mg/dL (<200); Estimated Glomerular Filt Rate > 60; HDL Cholesterol 64 mg/dL (>40); Potassium 4.0 mmol/L (3.3-5.1); Sodium 140 mmol/L (135-145); Total Protein 6.8 g/dL (6.5-8.0); Triglycerides 63 mg/dL (<150)
[2025-09-08 13:10] LABS: HBS Num1 0.60 mIU/mL (0-7.99); HBc Num1 0.05 S/CO (0.00-0.79); HBsAGNum1 0.34 S/CO (0.00-0.99); Hepatitis B Surface Antigen Negative (Negative); ~HepC Num1 0.11 S/CO (0.00-0.79); ~Hepatitis B Surface Antibody NONREACTIVE (Nonreactive); ~Hepatitis C Antibody Nonreactive (Nonreactive)
--- OUTSIDE RECORDS SUMMARY | 2025-09-08 15:28 | XMS_ITS | Clinical Summary ---
Author Organization [facility] Address [address] [facility] [address] [place] [phone] Phone Care Team Providers Care Distribution Tech Name Role Phone Harvey Louis MD Primary [...] 05/01/2024 Family history of colon cancer 05/01/2024 Immunizations Immunization Administration Dates Next Due Tdap [...] 2015 ZOSTER VACCINES (1 of 2) 2015 INFLUENZA VACCINE (#1) 2025 COVID-19 VACCINE (3 - 2024-2 6 season) 2025 05/17/2021, 04/19/2021 Adult Td,Tdap Booster 03/20/2035 03/20/2025 [...] this topic Medical Devices Not on file Insurance [facility] Care Teams Distribution Tech Relationship Specialty Start Date End Date Harvey Louis MD [address] [place] [address] PCP - General 05/01/24 Additional Source Comments The information contained in this document represents components of the legal health record. It is not the complete legal health record.[facility]
--- OUTSIDE RECORDS SUMMARY | 2025-09-08 15:29 | XMS_ITS | Data Portability ---
Author Organization [place] - [facility], Allergy Address [address] [place] [phone] Care Team Providers Care Stone Processing Machine Operator Name Role Phone TRAVIS GLASER Primary Care Provider [phone] Assessment Encounter Date Assessment Date Assessment LastModified by Organization Details LastModified Time 07/06/2025 07/06/2025 60-year-old male presents today for evaluation of head pressure which was noted after an episode of epistaxis. He pointed to his parietal area. He did have another nosebleed about a month ago that was not associated with any head pressure. He is asymptomatic today. On exam today, nasal endoscopy does not reveal any polyps or purulence or any prominent vessels. There is a septal spur to the left. I counseled him that it not clear that the head pressure and epistaxis are directly connected as they were by couple weeks. We discussed that hypertension could be a risk factor for both. We had a detailed discussion on nasal humidification with humidifier, saline sprays, saline jelly at night, applied to the outer nares and not with a Qtip. Using pressure and Afrin as needed for a nosebleed was discussed. He may follow-up for evaluation of cautery if nosebleeds become more frequent. [email or web address] Not available 07/12/2025 05:32:21 Plan of Treatment Reminders Order Date Submit Date Provider Last Modified By Organization Details Last Modified Time Details Appointments None record ed. Lab None record ed. Referral None record ed. Procedures None record ed. Surgeries None record ed. Imaging None record ed. Medication Orders None record ed. Patient TargetsNo targets recorded. Patient InstructionsNo instructions recorded. Reason for Referral None Reported. Problems Name Problem SNOMED Code Status Onset Date Resolution Date Notes Provider Name and Address Organization Details Recorded Time Bleeding from nose 614259788 Active 2024 LUCAS HUNTER MD [address] [address], [place], [phone], [facility] 5 05:28:08 Essential hypertension 57025564 Active 2024 LUCAS HUNTER MD [address] [address], [place], [phone], [facility] 5 05:28:17 Problem Notes None recorded. Procedures Surgical History Date Name Laterality Status Provider Name and Address Organization Details Recorded Time JMSNasal/Sinus Endoscopy completed LUCAS HUNTER MD [address] [address], [place], [phone], [facility] 07/06/2025 10:35:30 Imaging Results None recorded. Procedure Notes None recorded. Medical Equipment None Reported. Allergies No known drug allergies Medications Name Sig Start Date Stop Date Status Note LastModified by Organization Details LastModified Time losartan 25 mg tablet TAKE ONE TABLET BY MOUTH EVERY DAY active Not Available Not Available No t Available fluticasone propionate 50 mcg/actuation nasal spray,suspens ion INSTILL ONE SPRAY INTO EACH NOSTRTIL EVERY 12 HOURS active Not Available Not Available No t Available naproxen 500 mg tablet TAKE ONE TABLET BY MOUTH TWICE A DAY NEEDED FOR PAIN active Not Available Not Available No t Available Vitals Date Recorded Body height Body mass index (BMI) Body weight Provider Name and Address Organization Details Last Updated DateTime 07/06/2025 180.34 cm 30.7 kg/m2 26862.32 g Elizabeth Downing [facility] 07/06/2025 10:09:34 Social History None recorded. Functional Status None recorded. Mental Status None recorded. Family History Nothing Reported. Medical History Condition Response Hypertension Y Past Encounters Encounter ID Performer Location Encounter Start Date Encounter Closed Date Diagnosis/Indication Diagnosis SNOMED-CT Code Diagnosis ICD10 Code Diagnosis IMO Codes Diagnosis Note [id number] LUCAS HUNTER MD [facility] on [address] [place] [phone] 07/06/2025 09:59:09 07/06/2025 11:51:27 Bleeding from nose 147491855 R04.0 2558 Essential hypertension 49229354 I10 68604 Health Concerns Section Related Observation LastModified by Organization Detai ls LastModified Time None Recorded Concern Status LastModified by Organization Details LastModified Time None Recorded Advance Directives Directive None Recorded Payers Insurance Date Sequence Insurance Name Policy Number Policy Blackwell Covered Member ID Blackwell Member ID Guarantor Name 07/06/2025 1 [facility] (MEDICARE REPLACEMENT/AD VANTAGE - HMO) Gonzalez Wright [id number] Gonzalez Wright 07/12/2025 1 [facility] PL[facility] - [facility] (MEDICAID REPLACEMENT - HMO) [facility] Gonzalez Wright [id number] Gonzalez Wright Notes Date Note Type Note Provider Name and Address Organization Details Recorded Time 07/06/2025 text/html 60 yo M presents for head pressure/ epistaxis 9 months ago head pressure and nose bleed right side ended up clotting, bled for 1 minuteusing naproxenHead pressure 2-3 weeks after nosebleed then points to parietal area had another bleed 1 month ago, short period of time, no head pressure no sinus infectionsno vision changesno migrainesrare vertigo has not needed fluticasone LUCAS HUNTER MD [address] [place] [address], [place], [phone], [facility] - [facility] 07/12/2025 05:32:45
== END 2025-09-08 11:19 | disposition home or self-care (01) ==
LOC: HO.10HDL 11:18
PROVIDERS: Visit Provider Family Medicine
DX: Z00.00 Encounter for general adult medical examination without abnormal findings (principal); E78.00 Pure hypercholesterolemia, unspecified; R74.8 Abnormal levels of other serum enzymes; Z11.3 Encounter for screening for infections with a predominantly sexual mode of transmission; Z11.59 Encounter for screening for other viral diseases; R73.01 Impaired fasting glucose; N20.0 Calculus of kidney
CPT/HCPCS: 36415; 80053; 80061; 81003; 83036; 86704; 86706; 86803; 87340

== ENCOUNTER 2025-09-17 08:39 | Outpatient (AMB) | payer OTHER, SELFPAY ==
--- OUTSIDE RECORDS SUMMARY | 2024-10-05 08:30 | XMS_ITS ---
Author Organization [facility] Address [address] [place] [address] Care Team Providers Care Water Resource Project Manager Name Role Phone Harvey Louis Primary Care Provider Unavailab Nikos Luong Unavailable [phone] REASON FOR VISIT screening Problems Problem Type SNOMED Code ICD Code Onset Dates Problem Status W/U Status Risk Notes Problem Diverticular disease of colon (229443647) Diverticulosis of large intestine without perforation or abscess without bleeding (K57.30) Active confirmed Encounters Encounter Location Date Provider Diagnosis [facility] Outpatient [address] [place] [phone] 10/05/2024 Nikos Crabtree Colon cancer scree sean [...] * NITISH JOHNSONDOB: [birth year] (60 yo M)Acc No.[id number]:10/05/2024 COLON WITH MAC Patient: Nathan GAELISHANITISH Simpson Provider: Jet Crabtree MD :1965 A ge:59 Y S ex:Male Date:10/05/2024 Address:[address] [place] [address] Pcp:Harvey Louis Subjective: * Chief Complaints: * 1 . Screening. * Medical History: Objective: * Vitals: Assessment: * Assessment: 1. C olon cancer screening - Z12.11 (Primary) 2 . C olon polyps - K63.5? 3. D iverticulosis of large intestine without perforation or abscess without bleeding - K57.30 4 . O ther hemorrhoids - K64.8 Plan: * Treatment: * Procedure Codes: 4 5385 LESION REMOVAL COLONOSCOPY, Modifiers: 33 * * The named appointment provid er may or may not be the originator of this progress note, and it is not deemed complete until electronically signed by the appointment provider. Sign off status: Pending * Provider: Jet Crabtree MD Date: 12/05/2023 Generated for Devon rivers/Jacque/Marichuyitting on: 08:57 AM EDT
--- OUTSIDE RECORDS SUMMARY | 2025-06-01 10:05 | XMS_ITS | Encounter Summary ---
Author Organization [facility] Address [address] [place] [phone] Phone Care Team Providers Care Slot Machine Key Person Name Role Phone Harvey Louis MD Primary Care Provider Encounter Details Date Type Department Care Team (Late st Contact Info) Description 06/01/2025 10:05 AM EDT Hospital Encounter [facility] [address] [place] [phone] Giselle Mata FNP [address] [place] [address] [phone] JULIO [email or web address] Social History Tobacco Use Types Packs/Day [...] clinician's provided indication for this examination in [facility]: Trauma; bent awkwardly one month ago COMPARISON: None. FINDINGS: No fracture. Normal alignment. Mild medial femorotibial cartilage space narrowing. Small effusion. Procedure Note Cathy Anne MD - 06/01/2025 XR KNEE 4 OR MORE VIEWS (LEFT) Referring clinician's provided indication for this examination in [facility]:Trauma; bent awkwardly one month ago COMPARISON: None. FINDINGS: No fracture. Normal alignment. Mild medial femorotibial cartilage spacenarrowing. Small effusion. IMPRESSION: No fracture or dislocation. Small effusion. Giselle Mata MICROSOFT DYNAMICS DEVELOPER IMG XR LOWER EXTREMITY Afua l Result documented in this encounter Visit Diagnoses Not on filedocumented in this encounter Care Teams Slot Machine Key Person Relationship Specialty Start Date End Date Harvey Louis MD PCP - General 05/01/24 documented as of this encounter Additional Source Comments The information contained in this document represents components of the legal health record. It is not the complete legal health record.[facility]
--- NOTE | 2025-09-17 08:49 | A.OFFPC_ITS ---
Vital Signs 09/17/25 08:57 Height 5 ft 11 in Weight 230 lb 4 oz BMI 32.1 BP 130/80 Blood Pressure Location Rt brachial Position Sitting Respiration 18 Pulse 86 Pulse Source Pulse Oximeter Temp 98.4 F Temp Source Oral Pulse Oximetry (%) 95 Oxygen Delivery Method Room Air Intake Visit Reasons: f/u blood pressure, chronic conditions Intake Note: patient is scheduled to discuss b/p and lab results. Labs have been completed patient also states he is having hamstring pain in the left leg. patient also states naproxen has not help with pain or swelling so far only asprin has helped with his discomforts. Spread Cutter Required: No Allergies No Known Allergies Allergy (Verified 09/17/25 08:55) Medication List - Last Reconciled 09/17/25 by Harvey Louis MD fluticasone propionate 50 mcg/actuation (Flonase Allergy Relief) 1 spray intranasal Q12H 30 days losartan 25 mg PO DAILY 90 days Tobacco use date assessed: 06/15/25 Dental Screening Dental Screen Date: 06/15/25 HPI f/u blood pressure, chronic conditions HPI Details 60 y/o male presents to f/u hypertension . Blood pressure today 130/80. He is on losartan 25mg daily. Has not been able to exercise much due to knee pain. Labs drawn 09/08/25. Reviewed labs with pt. A1c 5.4%. Elevated liver enzymes - AST 41, ALT 67. Triglycerides 63. TC 198. LDL 122. HDL 64. PFSH Medical History (Updated 09/17/25 @ 09:30 by Harvey Louis MD) Renal calculi Surgical History Hx of excision of mass History of repair of anterior cruciate ligament of right knee Hx of shoulder surgery Social History (Updated 06/15/25 @ 08:45 by Radha Cheung MA) Housing: House Alcohol intake: never Patient Tobacco Use Status: Never used Tobacco e-Cigarette/Vaping Use: Never Used Second Hand Smoke Exposure: No service: No Current occupational status: unemployed Current occupational exposures/hazards: No Cognitive needs: No Hearing needs: No Vision needs: No Questionnaire Thrive Questionnaire Date Thrive assessed: 12/04/24 I am a: Patient What is your living situation today?: I choose not to answer this question Within the past 12 months, did the food you bought not last and you didn't have the money to get more?: I choose not to answer this question Within the past 12 months, did you worry whether your food would run out before you got money to buy more?: I choose not to answer this question Do you have trouble paying for medicines?: I choose not to answer this question Do you have trouble getting transportation to medical appointments?: I choose not to answer this question Do you have trouble paying your heating and electricity bill?: I choose not to answer this question Do you have trouble taking care of your child, family member or friend?: I choose not to answer this question Do you have trouble with day-to-day activities such as bathing, preparing meals, shopping, managing finances, etc.?: I choose not to answer this question Are you currently unemployed and looking for a job?: I choose not to answer this question Are you interested in more education?: I choose not to answer this question Please select the resources that you would like help with: None Currently or been in a relationship where the following occur: I choose not to answer THRIVE Score: 0 SUYAPA-7 AMB Questionnaire SUYAPA-7 Date SUYAPA - 7 assessed: 12/20/22 Source: Developed by Drs. Nikos Mukherjee, Cyndie King, Jeremy Pederson and colleagues, with an educational carolyn from [employer]. Review of Systems Const Denies chills, Denies fatigue, Denies fever(s), Denies headache(s) and Denies weakness ENT Denies dizziness and Denies headache(s) Card Denies dyspnea Resp Denies cough, Denies dyspnea, Denies wheezing and Denies other (shortness of breath) Musc Denies numbness and Denies tingling Neuro Denies dizziness, Denies headache(s), Denies numbness, Denies tingling and Denies weakness Psych Denies anxiety and Denies depression Endo Denies fatigue Aller/Immun Denies wheezing Physical exam (Primary Care) Vital Signs: Last Vital Signs Temp 98.4 F 09/17/25 08:57 Pulse 86 09/17/25 08:57 Resp 18 09/17/25 08:57 BP 130/80 09/17/25 08:57 Pulse Ox 95 09/17/25 08:57 Oxygen Delivery Method Room Air 09/17/25 08:57 BMI result Body Mass Index 32.1 Tobacco/Smoking Status: Tobacco use Status Tobacco use date assessed 06/15/25 09/17/25 08:49 Patient Tobacco Use Status Never used Tobacco 09/17/25 08:49 e-Cigarette/Vaping Use Never Used 09/17/25 08:49 Thrive Assessment: Date of Thrive Assessment Date Thrive assessed 12/04/24 09/17/25 08:49 Currently or been in a relationship where the following occur: I choose not to answer Const General: well developed; No acute distress Nutritional Appearance: well nourished Orientation/consciousness: patient oriented x3 HENMT Head: Yes normocephalic and Yes atraumatic Eyes General: appearance normal, both eyes and all related structures Pupils: Equal, round and reactive pupils present EOM: EOMs intact bilaterally Resp Effort & Inspection: normal respiratory effort Neuro General: patient oriented x3 and gait normal Cranial nerves: Yes Equal, round and reactive pupils present Psych Affect: normal affect Coding Level of Care Code Est Pt Level 4 (44460) Diagnoses Hypertension I10 Left knee pain M25.562 Elevated fasting glucose R73.01 Hypercholesterolemia E78.00 Elevated liver enzymes R74.8 Assessment & Plan Assessment & Plan (1) Hypertension: Code(s): I10 - Essential (primary) hypertension Category: Medical Plan: BP is controlled goal is less than 140/90 Continue current medication and take regularly (2) Left knee pain: Code(s): M25.562 - Pain in left knee Category: Medical Plan: Ongoing left knee and hamstring pain. Minimal or no change with physical therapy Referred to ortho (3) Elevated fasting glucose: Code(s): R73.01 - Impaired fasting glucose Category: Medical Plan: Ongoing elevated fasting blood sugars though his A1c is still in the normal range Likely some insulin resistance and I encouraged a diet lower in sugars and starches (4) Hypercholesterolemia: Code(s): E78.00 - Pure hypercholesterolemia, unspecified Category: Medical Plan: Cholesterol level is elevated Patient says that he is having difficulty exercising due to his leg and that it will be better when he exercises however we discussed that it may be some time before he is able to exercise well. Starting Zetia today. (5) Elevated liver enzymes: Code(s): R74.8 - Abnormal levels of other serum enzymes Category: Medical Plan: Ongoing elevated liver enzymes Encouraged weight loss Orders: Referrals Orthopedics Referral M25.562 - Pain in left knee, M79.605 - Pain in left leg Medications: New ezetimibe (Zetia) 10 mg PO DAILY 90 tabs 2RF 90 days
[2025-09-17 08:57] VITALS: BP 130/80; PULSE 86; RESP 18; TEMP 36.9; O2SAT 95; BMI 32.1
--- OUTSIDE RECORDS SUMMARY | 2025-09-17 08:58 | XMS_ITS | Clinical Summary ---
Author Organization [facility] Address [address] [place] [address] Phone Care Team Providers Care Mortgage Loan Computation Clerk Name Role Phone Harvey Louis MD Primary [...] kg (220 lb) 05/01/2024 2:22 PM EDT per pt Height - - Body Mass Index [...] topic Medical Devices Not on file Insurance [facility] Care Teams Mortgage Loan Computation Clerk Relationship Specialty Start Date End Date Harvey Louis MD PCP - General 05/01/24 Additional Source Comments The information contained in this document represents components of the legal health record. It is not the complete legal health record.[facility]
--- OUTSIDE RECORDS SUMMARY | 2025-09-17 08:58 | XMS_ITS | Patient Health Record ---
Author Organization [facility] Address [address] [place] [address] Care Team Providers Care Furnace Operator And Tender Name Role Phone Heriberto Harvey Primary Care Provider Unavailab Nikos Luong Unavailable [phone] Allergies No Known Allergies Results Component Value Reference Range Notes Pathology (Not yet reviewed by provider) Interpretation: Performing Lab:[facility], [address] [place] [phone] Notes/Report: Reason For Referral No Information Problems Problem Type SNOMED Code ICD Code Onset Dates Problem Status W/U Status Risk Notes Problem Colon cancer screening (353188455) Colon cancer screening (Z12.11) Active confirmed Problem Pre-procedure evaluation check (213640010) Encounter for other preprocedural examination (Z01.818) Active confirmed Problem Diverticular disease of colon (053147746) Diverticulosis of large intestine without perforation or abscess without bleeding (K57.30) Active confirmed Encounters Encounter Location Date Provider Diagnosis [facility] [address] [place] [phone] 10/05/2024 Nikos Crabtree Colon cancer scree sean [...] hemorrhoids (ICD-10 - K64.8) Plan Of Treatment Pending Test Test Name Order Date Pathology 10/05/2024 Future Test Test Name Order Date COLONOSCOPY 08/19/2014 COLONOSCOPY 07/21/2024 Insurance Providers Payer Name Payer Address Payer Phone Subscriber Number Group Number Insured Name Patient Relationship to Insured Coverage Start Date Coverage End Date [facility] [address] [address] [place], [place] [id number] [employer] Self - patient is the insured Medical (General) History Medical History History ICD Code Denies LA,DM,CVA,Lung disease,renal dise ase Kidney stone Surgical History Surgery Date(Month/Year) Shoulder surgery-right Right knee surgery-ACL Ganglion on the left
--- OUTSIDE RECORDS SUMMARY | 2025-09-17 08:58 | XMS_ITS | Data Portability ---
Author Organization [place] - [facility], Allergy Address [address] [place] [phone] Care Team Providers Care Corporate Director Of Pharmacy Name Role Phone TRAVIS GLASER Primary Care Provider Assessment Encounter Date Assessment Date Assessment LastModified [...] Organization Details Recorded Time Bleeding from nose 793402096 Active 2024 LUCAS HUNTER MD [address] [address], [place], [phone], [facility] 5 05:28:08 Essential hypertension 04094781 Active 2024 LUCAS HUNTER MD [address] [address], [place], [address], [facility] 5 05:28:17 Problem Notes None recorded. Procedures Surgical History Date Name Laterality Status Provider Name and Address Organization Details Recorded Time JMSNasal/Sinus Endoscopy completed LUCAS HUNTER MD [address] [address], [place], [address], [facility] 07/06/2025 10:35:30 Imaging Results None recorded. Procedure [...] Updated DateTime 07/06/2025 180.34 cm 30.7 kg/m2 52991.32 g Elizabeth Downing [facility] 07/06/2025 10:09:34 Social History None recorded. Functional Status None recorded. Mental Status None recorded. Family History Nothing Reported. Medical History Condition Response Hypertension Y Past Encounters Encounter ID Performer Location Encounter Start Date Encounter Closed Date Diagnosis/Indication Diagnosis SNOMED-CT Code Diagnosis ICD10 Code Diagnosis IMO Codes Diagnosis Note [id number] LUCAS HUNTER MD [facility] on [address] [place] [phone] 07/06/2025 09:59:09 07/06/2025 11:51:27 Bleeding from nose 995861334 R04.0 2558 Essential hypertension 71816880 I10 57335 Health Concerns Section Related Observation LastModified by Organization Detai ls LastModified Time None Recorded Concern Status LastModified by Organization Details LastModified Time None Recorded Advance Directives Directive None Recorded Payers Insurance Date Sequence Insurance Name Policy Number Policy Blackwell Covered Member ID Blackwell Member ID Guarantor Name 07/06/2025 1 [facility] (MEDICARE REPLACEMENT/AD VANTAGE - HMO) Gonzalez Wright [id number] Gonzalez Wright 07/12/2025 1 [facility] PLAN - [facility] (MEDICAID REPLACEMENT - HMO) [facility] Gonzalez Wright [id number] Gonzalez Wright Notes Date Note Type Note [...] has not needed fluticasone LUCAS HUNTER MD [address] [place] [address], [place], [address], [facility] - [facility] 07/12/2025 05:32:45
== END 2025-09-17 09:30 | disposition home or self-care (01) ==
LOC: HO.HMCFM 08:40
PROVIDERS: PCP Family Medicine; Visit Provider Family Medicine
DX: I10 Essential (primary) hypertension (principal); M25.562 Pain in left knee; R73.01 Impaired fasting glucose; E78.00 Pure hypercholesterolemia, unspecified; R74.8 Abnormal levels of other serum enzymes

== ENCOUNTER → 2025-09-17 08:39 | Outpatient (BNVA) | payer OTHER, SELFPAY | PROVIDERS: PCP Family Medicine; Visit Provider Family Medicine | DX: I10 Essential (primary) hypertension (principal); E78.5 Hyperlipidemia, unspecified; M25.562 Pain in left knee; R73.01 Impaired fasting glucose; E78.00 Pure hypercholesterolemia, unspecified; R74.8 Abnormal levels of other serum enzymes | CPT/HCPCS: 99212 ==

== ENCOUNTER 2025-10-21 09:50 | Outpatient (AMB) | payer OTHER, SELFPAY ==
--- OUTSIDE RECORDS SUMMARY | 2024-10-05 07:30 | XMS_ITS ---
Author Organization [facility] Address [address] [place] [address] Care Team Providers Care Industrial Ecology Technician Name Role Phone Harvey Louis Primary Care Provider Unavailab Nikos Luong Unavailable [phone] REASON FOR VISIT screening Problems Problem Type SNOMED Code ICD Code Onset Dates Problem Status W/U Status Risk Notes Problem Diverticular disease of colon (123848455) Diverticulosis of large intestine without perforation or abscess without bleeding (K57.30) Active confirmed Encounters Encounter Location Date Provider Diagnosis [facility] [place] Outpatient [address] [place] [phone] 10/05/2024 Nikos Crabtree Colon cancer scree sean Z12.11 ; Colon polyps K63.5 ; Diverticulosis of large intestine without perforation or abscess without bleeding K57.30 and Other hemorrhoids K64.8 Assessments Encounter Date Diagnosis (ICD Code) Assessment Notes Treatment Notes Treatment Clinical Notes Section Notes 10/05/2024 Colon cancer screening (ICD-10 - Z12.11) 10/05/2024 Colon polyps (ICD-10 - K63.5) 10/05/2024 Diverticulosis of large intestine without perforation or abscess without bleeding (ICD-10 - K57.30) 10/05/2024 Other hemorrhoids (ICD-10 - K64.8) Plan Of Treatment No Information Progress Notes * NITISH JOHNSONDOB: [birth year] (60 yo M)Acc No.[id number]:10/05/2024 COLON WITH MAC Patient: Nathan GAELISHANITISH Simpson Provider: Jet Crabtree MD :1965 A ge:59 Y S ex:Male Date:10/05/2024 Address:[address] [place] [address] Pcp:Harvey Louis Subjective: * Chief Complaints: * S creening Assessment: * Assessment: 1. C olon cancer screening - Z12.11 (Primary) 2 . C olon polyps - K63.5? 3. D iverticulosis of large intestine without perforation or abscess without bleeding - K57.30 4 . O ther hemorrhoids - K64.8 Plan: * Procedure Codes: 4 5385 LESION REMOVAL COLONOSCOPY, Modifiers: 33 Billing Information: * Procedure Codes: 12721 LESION REMOVAL COLONOSCOPY. Modifiers: 33 * The named appointment provid er may or may not be the originator of this progress note, and it is not deemed complete until electronically signed by the appointment provider. Sign off status: Pending * Provider: Jet Crabtree MD Date: 12/05/2023 Generated for Devon rivers/Jacque/Marichuyitting on: 12/22/2024 11:26 AM EST
--- OUTSIDE RECORDS SUMMARY | 2025-06-01 09:05 | XMS_ITS | Encounter Summary ---
Author Organization [facility] Address [address] [place] [phone] Phone Care Team Providers Care Music Arranger Name Role Phone Harvey Louis MD Primary Care Provider Encounter Details Date Type Department Care Team (Late st Contact Info) Description 06/01/2025 10:05 AM EDT Hospital Encounter [facility] [address] [place] [id number] Giselle Mata FNP [address] [place] [address] [phone] JULIO [email or web address] Social History Tobacco Use Types Packs/Day Years Used Date Smoking Tobacco: Never Smokeless Tobacco: Never Education Answer Date Recorded Are you interested in more education? Not on jojo e 05/01/2024 Are you concerned about learning? Not on file 05/01/2024 No 05/01/2024 No 05/01/2024 Digital Access Answer Date Recorded No 05/01/2024 No 05/01/2024 Reliable internet access at home? Not on file 05/01/2024 Device with a working camera? Not on file Sex and Gender Information Value Date Recorded Sex Assigned at Not on file Legal Sex Male 2:14 PM EDT Gender Identity Not on file Sexual Orientation Not on file documented as of this encounter Plan of Treatment Not on file documented as of this encounter Procedures Procedure Name Priority Date/Time Associated Diagnosis Comments XR KNEE 4 OR MORE VIEWS (LEFT) Urgent/patient waiting 06/01/2025 10:14 AM EDT Knee strain, left, initial encounter documented in this encounter Results * XR KNEE 4 OR MORE VIEWS (LEFT) (06/01/2025 10:14 AM EDT) Anatomical Region Laterality Modality Knee Left Computed Radiogr aphy 06/01/2025 11:1 4 AM EDT Impressions 06/01/2025 11:15 AM EDT No fracture or dislocation. Small effusion. Narrative 06/01/2025 11:15 AM EDT XR KNEE 4 OR MORE VIEWS (LEFT) Referring clinician's provided indication for this examination in [facility]: Trauma; bent awkwardly one month ago COMPARISON: None. FINDINGS: No fracture. Normal alignment. Mild medial femorotibial cartilage space narrowing. Small effusion. Procedure Note Cathy Anne MD - 06/01/2025 XR KNEE 4 OR MORE VIEWS (LEFT) Referring clinician's provided indication for this examination in [facility]:Trauma; bent awkwardly one month ago COMPARISON: None. FINDINGS: No fracture. Normal alignment. Mild medial femorotibial cartilage spacenarrowing. Small effusion. IMPRESSION: No fracture or dislocation. Small effusion. Giselle Mata COMMERCIAL DRAFTER IMG XR LOWER EXTREMITY Afua l Result documented in this encounter Visit Diagnoses Not on filedocumented in this encounter Care Teams Music Arranger Relationship Specialty Start Date End Date Harvey Louis MD PCP - General 05/01/24 documented as of this encounter Additional Source Comments The information contained in this document represents components of the legal health record. It is not the complete legal health record.[facility]
--- NOTE | 2025-10-21 10:06 | A.OFFVIS_ITS ---
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 PCP referral for left knee and leg pain. Today patient reports that on 05/06/25 his kneecap popped in and out. He has attended PT with no improvement, ongoing weakness. States not really pain, more of a soreness with weakness. He believes his condition is a hamstring muscle. He is now having discomfort in his right knee due to overcompensation. Hx of right knee ACL repair. Finds that Naproxen has not helped with swelling. 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 He states he was walking when he felt a shift in the patella and developed discomfort. He was seen by his primary care doctor who sent him to physical therapy. He states he only did 3 weeks of physical therapy and did not feel he was gaining any benefits. He denies pain at the moment because he is taking anti-inflammatories however his primary concern is weakness. [facility] Medical History (Updated 10/21/25 @ 10:32 by Valeria Ramirez PA-C) Renal calculi Surgical History Hx of excision of mass History of repair of anterior cruciate ligament of right knee Hx of shoulder surgery Social History (Updated 06/15/25 @ 08:45 by Radha Cheung MA) Housing: House Alcohol intake: never Patient Tobacco Use Status: Never used Tobacco e-Cigarette/Vaping Use: Never Used Second Hand Smoke Exposure: No service: No Current occupational status: unemployed Current occupational exposures/hazards: No Cognitive needs: No Hearing needs: No Vision needs: No Review of Systems Const All systems reviewed & are unremarkable except as noted in HPI and below Physical Exam Const General: cooperative and no acute distress Orientation/consciousness: patient oriented x3 Resp Effort & Inspection: normal respiratory effort and able to speak in complete sentences Cardio Peripheral pulses: Peripheral pulses 2+ throughout Neuro General: patient oriented x3 Extrem Other: Left knee normal to inspection no open wounds or abrasions. No erythema or joint effusion. He has full range of motion with crepitus. No direct tenderness to palpation over the medial or lateral joint line. No instability noted. Good quad function. Calf supple nontender neurovascularly intact. Assessment & Plan Assessment & Plan (1) Osteoarthritis of left knee: Code(s): M17.12 - Unilateral primary osteoarthritis, left knee Category: Medical Plan: We discussed options today which includes physical therapy. I did stressed the importance of working with therapy for a good 6-8 weeks and also maintaining a good home exercise program. I did offer him a steroid injection however he denies pain therefore we will hold off at this time. I encouraged him to increase activities as tolerated. Reassurance given I do not feel there is an acute tear that warrant surgical intervention. If symptoms persist or worsen over the next 3 months he can contact me for an injection if he has pain otherwise he will follow up as needed. Orders: Orders XR knee LT 3V Today M25.562 - Pain in left knee PT Evaluation and Treatment Today M17.12 - Unilateral primary osteoarthritis, l eft knee Coding Level of Care Code Complex visit Add On G2211 Diagnoses Osteoarthritis of left knee M17.12
--- OUTSIDE RECORDS SUMMARY | 2025-10-21 11:26 | XMS_ITS | Clinical Summary ---
Author Organization [facility] Address [address] [place] [address] Phone Care Team Providers Care Data Capture Clerk Name Role Phone Harvey Louis MD [...] [facility] Care Teams Data Capture Clerk Relationship Specialty Start Date End Date Harvey Louis MD PCP - General 05/01/24 Additional Source Comments The information contained in this document represents components of the legal health record. It is not the complete legal health record.[facility]
--- OUTSIDE RECORDS SUMMARY | 2025-10-21 11:26 | XMS_ITS | Patient Health Record ---
Author Organization [facility] Address [address] [place] [address] Care Team Providers Care Head Knitting Machine Fixer Name Role Phone Heriberto Harvey Primary Care Provider Unavailab Nikos Luong Unavailable [phone] Allergies No Known Allergies Reason For Referral No Information Social History Social History Additional Details Category Social Info Options Details Miscellaneous: Marital status: single Occupation: unemployed Section Notes: Nonsmoker; no sig alcohol Nonsmoker; no sig alcohol Problems Problem Type SNOMED Code ICD Code Onset Dates Problem Status W/U Status Risk Notes Problem Colon cancer screening (155103019) Colon cancer screening (Z12.11) Active confirmed Problem Pre-procedure evaluation check (507209700) Encounter for other preprocedural examination (Z01.818) Active confirmed Problem Diverticular disease of colon (626404691) Diverticulosis of large intestine without perforation or abscess without bleeding (K57.30) Active confirmed Plan Of Treatment Pending Test Test Name Order Date Pathology 10/05/2024 Future Test Test Name Order Date COLONOSCOPY 08/19/2014 COLONOSCOPY 07/21/2024 Insurance Providers Payer Name Payer Address Payer Phone Subscriber Number Group Number Insured Name Patient Relationship to Insured Coverage Start Date Coverage End Date [facility] [address] [address] [place], [place] [id number] NITISH JOHNSON Self - patient is the insured Medical (General) History Medical History History ICD Code Denies PR,DM,CVA,Lung disease,renal dise ase Kidney stone Surgical History Surgery Date(Month/Year) Shoulder surgery-right Right knee surgery-ACL Ganglion on the left
== END 2025-10-21 10:41 | disposition home or self-care (01) ==
LOC: HO.HOS 09:51
PROVIDERS: PCP Family Medicine; Visit Provider Physician Assistant
DX: M17.12 Unilateral primary osteoarthritis, left knee (principal)
CPT/HCPCS: 99213

== ENCOUNTER 2025-10-21 15:24 | Outpatient (REF) | payer OTHER, SELFPAY ==
--- OUTSIDE RECORDS SUMMARY | 2024-10-05 07:30 | XMS_ITS ---
Author Organization [facility] Address [address] [place] [address] Care Team Providers Care Appraiser Personal Property Name Role Phone Harvey Louis Primary Care Provider Unavailab Nikos Luong Unavailable [phone] REASON FOR VISIT screening Problems Problem Type SNOMED Code ICD Code Onset Dates Problem Status W/U Status Risk Notes Problem Diverticular disease of colon (561532079) Diverticulosis of large intestine without perforation or abscess without bleeding (K57.30) Active confirmed Encounters Encounter Location Date Provider Diagnosis [facility] [place] Outpatient [address] [place] [phone] 10/05/2024 Nikos Crabtree Colon cancer scree sean [...] * NITISH JOHNSONDOB: [birth year] (60 yo M)Acc No.[id number]:10/05/2024 COLON WITH MAC Patient: Nathan GAELISHANITISH Simpson Provider: Jet Crabtree MD :1965 A ge:59 Y S ex:Male Date:10/05/2024 Address:[address] [place] [address] Pcp:Harvey Louis Subjective: * Chief Complaints: * [...] Modifiers: 33 Billing Information: * Procedure Codes: 43101 LESION REMOVAL COLONOSCOPY. Modifiers: 33 * The named appointment provid er may or may not be the originator of this progress note, and it is not deemed complete until electronically signed by the appointment provider. Sign off status: Pending * Provider: Jet Crabtree MD Date: 12/05/2023 Generated for Devon rivers/Jacque/Marichuyitting on: 12/23/2024 07:23 PM EST
--- OUTSIDE RECORDS SUMMARY | 2025-06-01 09:05 | XMS_ITS | Encounter Summary ---
Author Organization [facility] Address [address] [place] [phone] Phone Care Team Providers Care Glove Brusher Name Role Phone Harvey Louis MD Primary Care Provider Encounter Details Date Type Department Care Team (Late st Contact Info) Description 06/01/2025 10:05 AM EDT Hospital Encounter [facility] [address] [place] [phone] Giselle Mata FNP [address] [place] [address] [phone] JULIO [email or web address] Social History Tobacco Use Types [...] clinician's provided indication for this examination in [facility]: Trauma; bent awkwardly one month ago COMPARISON: None. FINDINGS: No fracture. Normal alignment. Mild medial femorotibial cartilage space narrowing. Small effusion. Procedure Note Cathy Anne MD - 06/01/2025 XR KNEE 4 OR MORE VIEWS (LEFT) Referring clinician's provided indication for this examination in [facility]:Trauma; bent awkwardly one month ago COMPARISON: None. FINDINGS: No fracture. Normal alignment. Mild medial femorotibial cartilage spacenarrowing. Small effusion. IMPRESSION: No fracture or dislocation. Small effusion. Giselle Mata BIOINFORMATICS TEAM MEMBER IMG XR LOWER EXTREMITY Afua l Result documented in this encounter Visit Diagnoses Not on filedocumented in this encounter Care Teams Glove Brusher Relationship Specialty Start Date End Date Harvey Louis MD PCP - General 05/01/24 documented as of this encounter Additional Source Comments The information contained in this document represents components of the legal health record. It is not the complete legal health record.[facility]
--- NOTE | ~2025-10-21 | XR_ITS ---
EXAMINATION: XR KNEE, LEFT CLINICAL INFORMATION: M25.562 - Pain in left knee COMPARISON: None available. TECHNIQUE: Two views of the left knee. AP bilateral knees one view FINDINGS: Left knee: Moderate medial compartment arthritis. Mild patellofemoral arthritis. No visible acute fracture or dislocation. Small-moderate joint effusion. Small ossifications posteriorly, seen on the lateral view, could reflect bony spurring or loose bodies. Right knee: Postsurgical changes from prior ligament surgery. No acute findings. Marginal spurring in the medial compartment. XR/XR knee LT 3V IMPRESSION: Left knee: Arthritis. Moderate medial compartment arthritis. Small-moderate effusion. Electronically signed by: Sedrick Huber MD 10/21/2025 02:50 PM EST
--- OUTSIDE RECORDS SUMMARY | 2025-10-22 19:23 | XMS_ITS | Patient Health Record ---
Author Organization [facility] Address [address] [place] [address] Care Team Providers Care Grease Refiner Operator Name Role Phone Heriberto Harvey Primary Care Provider Unavailab Nikos Luong Unavailable [phone] Allergies No Known Allergies Reason For Referral No Information Social History Social History Additional Details Category Social Info Options Details Miscellaneous: Marital status: single Occupation: unemployed Section Notes: Nonsmoker; no sig alcohol Nonsmoker; no sig alcohol Problems Problem Type SNOMED Code ICD Code Onset Dates Problem Status W/U Status Risk Notes Problem Colon cancer screening (994467159) Colon cancer screening (Z12.11) Active confirmed Problem Pre-procedure evaluation check (136679826) Encounter for other preprocedural examination (Z01.818) Active confirmed Problem Diverticular disease of colon (902712840) Diverticulosis of large intestine without perforation or abscess without bleeding (K57.30) Active confirmed Plan Of Treatment Pending Test Test Name Order Date Pathology 10/05/2024 Future Test Test Name Order Date COLONOSCOPY 08/19/2014 COLONOSCOPY 07/21/2024 Insurance Providers Payer Name Payer Address Payer Phone Subscriber Number Group Number Insured Name Patient Relationship to Insured Coverage Start Date Coverage End Date [facility] [address] [address] [place], [place] [phone] [id number] NITISH JOHNSON Self - patient is the insured Medical (General) History Medical History History ICD Code Denies [place],DM,CVA,Lung disease,renal dise ase Kidney stone Surgical History Surgery Date(Month/Year) Shoulder surgery-right Right knee surgery-ACL Ganglion on the left
--- OUTSIDE RECORDS SUMMARY | 2025-10-22 19:24 | XMS_ITS | Clinical Summary ---
Author Organization [facility] Address [address] [place] [phone] Phone Care Team Providers Care Trade Embalmer Name Role Phone Harvey Louis MD Primary [...] topic Medical Devices Not on file Insurance [facility] Care Teams Trade Embalmer Relationship Specialty Start Date End Date Harvey Louis MD PCP - General 05/01/24 Additional Source Comments The information contained in this document represents components of the legal health record. It is not the complete legal health record.[facility]
--- OUTSIDE RECORDS SUMMARY | 2025-10-22 19:24 | XMS_ITS | Data Portability ---
Author Organization [facility] - [facility] Address [address] [place] [address] Care Team Providers Care Turn Laster Name Role Phone TRAVIS GLASER Primary Care [...] Organization Details Recorded Time Bleeding from nose 736297408 Active 2024 LUCAS HUNTER MD [address] [address], [place], [address], [facility] 5 05:28:08 Essential hypertension 14631969 Active 2024 LUCAS HUNTER MD [address] [address], [place], [address], [facility] 5 05:28:17 Problem Notes None recorded. Procedures Surgical History Date Name Laterality Status Provider Name and Address Organization Details Recorded Time JMSNasal/Sinus Endoscopy completed LUCAS HUNTER MD [address] [address], [place], [address], [facility] 07/06/2025 10:35:30 Imaging Results None recorded. [...] Updated DateTime 07/06/2025 180.34 cm 30.7 kg/m2 94327.32 g Elizabeth Downing [facility] 07/06/2025 10:09:34 Social History None recorded. Functional Status None recorded. Mental Status None recorded. Family History Nothing Reported. Medical History Condition Response Hypertension Y Past Encounters Encounter ID Performer Location Encounter Start Date Encounter Closed Date Diagnosis/Indication Diagnosis SNOMED-CT Code Diagnosis ICD10 Code Diagnosis IMO Codes Diagnosis Note [id number] LUCAS HUNTER MD [facility] on [address] [place] [phone] 07/06/2025 09:59:09 07/06/2025 11:51:27 Bleeding from nose 723983697 R04.0 2558 Essential hypertension 73366931 I10 10468 Health Concerns Section Related Observation LastModified by Organization Detai ls LastModified Time None Recorded Concern Status LastModified by Organization Details LastModified Time None Recorded Advance Directives Directive None Recorded Payers Insurance Date Sequence Insurance Name Policy Number Policy Blackwell Covered Member ID Blackwell Member ID Guarantor Name 07/06/2025 1 [facility] (MEDICARE REPLACEMENT/AD VANTAGE - HMO) Gonzalez Wright [id number] Gonzalez Wright 07/12/2025 [address] [facility] (MEDICAID REPLACEMENT - HMO) [facility] Gonzalez Wright [id number] Gonzalez Wright Notes Date Note Type Note [...] has not needed fluticasone LUCAS HUNTER MD [address] [place] [address], [place], [address], [facility] - [facility] 07/12/2025 05:32:45
== END 2025-10-21 15:25 | disposition home or self-care (01) ==
LOC: HO.HOSX 15:24
PROVIDERS: Visit Provider Physician Assistant
DX: M17.12 Unilateral primary osteoarthritis, left knee (principal)
CPT/HCPCS: 73562; 99212